=== PATIENT | male | born 1955 | race Caucasian/White ===

== ENCOUNTER 2017-06-05 09:16 | Outpatient (CLI) | payer MEDICARE ==
[~2017-06-05] VITALS: Ht 167.6 cm; Wt 54.0 kg
[2017-06-05] MEDS ORDERED: HYDR-3820 PO (10:01)
[2017-06-05] MEDS ORDERED: SIMV20TA3 PO (10:01)
[2017-06-05] MEDS ORDERED: GABA-488 PO (10:01)
[2017-06-05] MEDS ORDERED: MELO15TA39 PO (10:01)
[2017-06-07] MEDS ORDERED: ACHD5005 PO (11:58)
[2017-06-07] MEDS ORDERED: DOCU-143 PO (11:58)
== END 2017-06-05 10:18 ==
LOC: PREOP 09:16
PROVIDERS: ATTEND Surgery
DX: Z01.818 Encounter for other preprocedural examination (principal); K40.91 Unilateral inguinal hernia, without obstruction or gangrene, recurrent

== ENCOUNTER 2017-06-07 08:50 | Day surgery (SDC) | payer MEDICARE ==
[~2017-06-07] VITALS: Ht 167.6 cm; Wt 54.0 kg
[~2017-06-07 08:50] MED LIST: GABA-488 PO; HYDR-3820 PO; MELO15TA39 PO; SIMV20TA3 PO
--- OUTSIDE RECORDS SUMMARY | 2017-06-07 08:55 | XMS REPORT | Clinical Summary ---
Author Author Admin, THEO Organization 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 HYDROCODONE-ACETAMINOPHEN 04646742335 Active Holland Jimenez MD Active RED YEAST RICE 600 MG CAPS 1 Q HS RED YEAST RICE EXTRACT 56391184313 No Longer Active Holland Jimenez MD Active EQL FISH OIL 1000 MG CAPS QD OMEGA-3 FATTY ACIDS 63198425309 No Longer Active Holland Jimenez MD Active SIMVASTATIN 40 MG TABS 1 tab po qHS SIMVASTATIN 83180222897 No Longer Active Holland Jimenez MD Active TESTOSTERONE CYPIONATE 200 MG/ML OIL 1 x monthly TESTOSTERONE CYPIONATE 73174326861 No Longer Active Holland Jimenez MD Active HYDROCODONE-ACETAMINOPHEN 7.5-500 MG TABS 1 tab po QID HYDROCODONE-ACETAMINOPHEN 33172180127 No Longer Active Holland Jimenez MD Active TAMSULOSIN HCL 0.4 MG CAPS Take one tablet daily TAMSULOSIN HCL 03382139940 No Longer Active Holland Jimenez MD Active MELOXICAM 15 MG TABS 1 PO QD MELOXICAM 40228790108 Active Trang [place] Active MULTIVITAMINS TABS 1 PO QD MULTIPLE VITAMIN 11369071992 Active Trang [place] Active TAMSULOSIN HCL 0.4 MG CAPS Take one tablet daily TAMSULOSIN HCL 0.4 MG CAPS 312672 TAMSULOSIN HCL Inactive HYDROCODONE-ACETAMINOPHEN 7.5-500 MG TABS 1 tab po QID HYDROCODONE-ACETAMINOPHEN 7.5-500 MG TABS HYDROCODONE-ACETAMINOPHEN Inactive TESTOSTERONE CYPIONATE 200 MG/ML OIL 1 x monthly TESTOSTERONE CYPIONATE 200 MG/ML OIL 065712 TESTOSTERONE CYPIONATE Inactive SIMVASTATIN 40 MG TABS 1 tab po qHS SIMVASTATIN 40 MG TABS 847459 SIMVASTATIN Inactive EQL FISH OIL 1000 MG CAPS QD EQL FISH OIL 1000 MG CAPS OMEGA-3 FATTY ACIDS Inactive RED YEAST RICE 600 MG CAPS 1 Q HS RED YEAST RICE 600 MG CAPS 166377 RED YEAST RICE EXTRACT Inactive Advance Directives Directive Description Start Date PERMISSION TO SHARE Vital Signs Date Name Value Unit Range Description blood pressure, diastolic - 8462-4 60 mm[Hg] BP estrella blood pressure, systolic - 8480-6 95 mm[Hg] BP sys pulse rate E&M - 8867-4 70 /min Heart rate temperature E&M 98.6 [degF] Body temperature weight E&M - 3141-9 124 [lb_av] Weight Measured Encounters Code Encounter Date Provider Facility CPT-51126 Level 3 Est. Patient 18:01:45 TALCER Holland Jimenez MD [facility] CPT-54207 Level 3 Est. Patient 15:31:58 TALCER Holland Jimenez MD [facility] CPT-13983 Level 3 Est. Patient 17:39:10 CDT Holland Jimenez MD [facility] Procedures Code Procedure Name Date Entry Date Standard Description CPT-89387 Postop F/U Visit 17:15:05 TALCER CPT-23971 Bladder Scan 15:23:50 TALCER CPT-73422 Postop F/U Visit 15:23:50 TALCER CPT-63513 Bladder Scan 15:31:58 TALCER CPT-08485 Bladder Scan 17:39:10 CDT CPT-71818 Cystoscopy 17:39:10 CDT
--- OUTSIDE RECORDS SUMMARY | 2017-06-07 08:55 | XMS REPORT | Clinical Summary ---
Author Author Admin, THEO Organization [facility] Address Unknown Phone Unavailable Allergies, Adverse Reactions, Alerts Allergy Name Reaction Description Start Date Severity Status Provider No Known Allergies Dottie Martin Conditions or Problems Problem Name Problem Code [...] Generic Name NDC Status Provider Patient Instruction TADALAFIL 20MG RAPID DISSOLVE TABLET 1 daily as needed. TADALAFIL 20MG RAPID DISSOLVE TABLET Active Holland Jimenez MD Active CYCLOBENZAPRINE HCL 10 MG ORAL TABS 1 tab by mouth three times daily CYCLOBENZAPRINE HCL 54908117505 Active Holland Jimenez MD Active HYDROCODONE-ACETAMINOPHEN 10-325 MG ORAL TABS 1 tab by mouth every 6 hours prn. HYDROCODONE-ACETAMINOPHEN 40669085606 Active Holland Jimenez MD Active RED YEAST RICE 600 MG CAPS 1 Q HS RED YEAST RICE EXTRACT 90714058376 No Longer Active Holland Jimenez MD Active EQL FISH OIL 1000 MG CAPS QD OMEGA-3 FATTY ACIDS 68590125162 No Longer Active Holland Jimenez MD Active SIMVASTATIN 40 MG TABS 1 tab po qHS SIMVASTATIN 61080688152 No Longer Active Holland Jimenez MD Active TESTOSTERONE CYPIONATE 200 MG/ML OIL 1 x monthly TESTOSTERONE CYPIONATE 42903637284 No Longer Active Holland Jimenez MD Active HYDROCODONE-ACETAMINOPHEN 7.5-500 MG TABS 1 tab po QID HYDROCODONE-ACETAMINOPHEN 13713562976 No Longer Active Holland Jimenez MD Active TAMSULOSIN HCL 0.4 MG CAPS Take one tablet daily TAMSULOSIN HCL 52457403554 No Longer Active Holland Jimenez MD Active MELOXICAM 15 MG TABS 1 PO QD MELOXICAM 89388193327 Active Trang [place] Active MULTIVITAMINS TABS 1 PO QD MULTIPLE VITAMIN 36225928918 Active Trang [place] Active TAMSULOSIN HCL 0.4 MG CAPS Take one tablet daily TAMSULOSIN HCL 0.4 MG CAPS 930455 TAMSULOSIN HCL Inactive HYDROCODONE-ACETAMINOPHEN 7.5-500 MG TABS 1 tab po QID HYDROCODONE-ACETAMINOPHEN 7.5-500 MG TABS HYDROCODONE-ACETAMINOPHEN Inactive TESTOSTERONE CYPIONATE 200 MG/ML OIL 1 x monthly TESTOSTERONE CYPIONATE 200 MG/ML OIL 122464 TESTOSTERONE CYPIONATE Inactive SIMVASTATIN 40 MG TABS 1 tab po qHS SIMVASTATIN 40 MG TABS 954309 SIMVASTATIN Inactive EQL FISH OIL 1000 MG CAPS QD EQL FISH OIL 1000 MG CAPS OMEGA-3 FATTY ACIDS Inactive RED YEAST RICE 600 MG CAPS 1 Q HS RED YEAST RICE 600 MG CAPS 030178 RED YEAST RICE EXTRACT Inactive Advance Directives Directive Description Start Date PERMISSION TO SHARE Vital Signs Date Name Value Unit Range Description blood pressure, diastolic - 8462-4 70 mm[Hg] BP estrella blood pressure, systolic - 8480-6 120 mm[Hg] BP sys pulse rate E&M - 8867-4 71 /min Heart rate temperature E&M 97.8 [degF] Body temperature weight E&M - 3141-9 117 [lb_av] Weight Measured blood pressure, diastolic - 8462-4 60 mm[Hg] BP estrella blood pressure, systolic - 8480-6 95 mm[Hg] BP sys pulse rate E&M - 8867-4 70 /min Heart rate temperature E&M 98.6 [degF] Body temperature weight E&M - 3141-9 124 [lb_av] Weight Measured Diagnostic Results Date Name Value Unit Range Description Chart Maintenance: Outside labs entered on flowsheet - Chemistry prostate specific antigen 0.8 ng/mL sodium, serum 139 mmol/L potassium, serum 4.2 mmol/L blood glucose 96 mg/dL creatinine, serum 0.7 mg/dL aspartate aminotransferase (SGOT), serum 14 U/L alanine aminotransferase (SGPT), serum 11 U/L alkaline phosphatase, serum 83 U/L Chart Maintenance: Outside labs entered on flowsheet - Hematology leukocyte count, blood 6.80 10*3/mm3 hemoglobin, blood 15.7 g/dL platelet count 227 10*3/mm3 Encounters Code Encounter Date Provider Facility CPT-16991 Level 3 Est. Patient 21:11:41 CDT Holland Jimenez MD [facility] CPT-88621 Level 3 Est. Patient 18:01:45 CULTURE MANAGER Holland Jimenez MD [facility] [place] CPT-15464 Level 3 Est. Patient 15:31:58 CULTURE MANAGER Holland Jimenez MD [facility] CPT-57152 Level 3 Est. Patient 17:39:10 CDT Holland Jimenez MD [facility] Procedures Code Procedure Name Date Entry Date Standard Description CPT-10826 Postop F/U Visit 17:15:05 CULTURE MANAGER CPT-77517 Bladder Scan 15:23:50 CULTURE MANAGER CPT-54344 Postop F/U Visit 15:23:50 CULTURE MANAGER CPT-80260 Bladder Scan 15:31:58 CULTURE MANAGER CPT-47793 Bladder Scan 17:39:10 CDT CPT-43482 Cystoscopy 17:39:10 CDT
--- OUTSIDE RECORDS SUMMARY | 2017-06-07 08:55 | XMS REPORT | Clinical Summary ---
Author Author Admin, THEO Organization [facility] Address Unknown Phone Unavailable Allergies, Adverse Reactions, Alerts Allergy Name Reaction Description Start Date Severity Status Provider No Known Allergies Leanna Torres MA Conditions or Problems Problem Name Problem Code [...] Jimenez MD Elevated prostate specific antigen [PSA] Erectile Dysfunction Active Holland Jimenez MD Psychosexual dysfunction, hypoactive sexual desire disorder Neurofibromatosis 237.70 Active Holland Jimenez MD Neurofibromatosis, unspecified Inguinal hernia, right 550.90 Active Holland Jimenez MD Unilateral or unspecified inguinal hernia, without mention of obstruction or gangrene (not specified as recurrent) Medication List Medication Instructions Start Date Stop Date Generic Name NDC Status Provider Patient Instruction CYCLOBENZAPRINE HCL 10 MG ORAL TABLET 1 tab once daily PRN CYCLOBENZAPRINE HCL 59422219279 Active Holland Jimenez MD Active ADCIRCA 20 MG ORAL TABLET 1 cap by mouth plus 10mg to equal 30mg daily. 08/17 TADALAFIL (PAH) 80531186263 Active Holland Jimenez MD Active TADALAFIL 20MG RAPID DISSOLVE TABLET 1 daily as needed. TADALAFIL 20MG RAPID DISSOLVE TABLET No Longer Active Kae Vaughan Active CYCLOBENZAPRINE HCL 10 MG ORAL TABLET 1 tab by mouth three times daily 05/19 CYCLOBENZAPRINE HCL 73490108299 Active Holland Jimenez MD Active HYDROCODONE-ACETAMINOPHEN 10-325 MG ORAL TABLET 1 tab by mouth every 6 hours prn. HYDROCODONE-ACETAMINOPHEN 85637686616 Active Holland Jimenez MD Active RED YEAST RICE 600 MG ORAL CAPSULE 1 Q HS RED YEAST RICE EXTRACT 91695989533 No Longer Active Holland Jimenez MD Active EQL FISH OIL 1000 MG ORAL CAPSULE QD OMEGA-3 FATTY ACIDS 68622936102 No Longer Active Holland Jimenez MD Active SIMVASTATIN 40 MG ORAL TABLET 1 tab po qHS SIMVASTATIN 61825894518 No Longer Active Holland Jimenez MD Active TESTOSTERONE CYPIONATE 200 MG/ML INTRAMUSCULAR SOLUTION 1 x monthly 05/19 TESTOSTERONE CYPIONATE 81939098355 No Longer Active Holland Jimenez MD Active HYDROCODONE-ACETAMINOPHEN 7.5-500 MG ORAL TABLET 1 tab po QID HYDROCODONE-ACETAMINOPHEN 21322828362 No Longer Active Holland Jimenez MD Active TAMSULOSIN HCL 0.4 MG ORAL CAPSULE Take one tablet daily TAMSULOSIN HCL 79061003455 No Longer Active Holland Jimenez MD Active MELOXICAM 15 MG ORAL TABLET 1 PO QD MELOXICAM 16529568924 Active Trang [place] Active MULTIVITAMINS TABS 1 PO QD MULTIPLE VITAMIN 34553333990 Active Trang [place] Active TAMSULOSIN HCL 0.4 MG ORAL CAPSULE Take one tablet daily TAMSULOSIN HCL 0.4 MG ORAL CAPSULE 473130 TAMSULOSIN HCL Inactive HYDROCODONE-ACETAMINOPHEN 7.5-500 MG ORAL TABLET 1 tab po QID HYDROCODONE-ACETAMINOPHEN 7.5-500 MG ORAL TABLET 274313 HYDROCODONE- ACETAMINOPHEN Inactive TESTOSTERONE CYPIONATE 200 MG/ML INTRAMUSCULAR SOLUTION 1 x monthly 05/19 TESTOSTERONE CYPIONATE 200 MG/ML INTRAMUSCULAR SOLUTION 781694 TESTOSTERONE CYPIONATE Inactive SIMVASTATIN 40 MG ORAL TABLET 1 tab po qHS SIMVASTATIN 40 MG ORAL TABLET 394188 SIMVASTATIN Inactive EQL FISH OIL 1000 MG ORAL CAPSULE QD EQL FISH OIL 1000 MG ORAL CAPSULE OMEGA-3 FATTY ACIDS Inactive RED YEAST RICE 600 MG ORAL CAPSULE 1 Q HS RED YEAST RICE 600 MG ORAL CAPSULE 803495 RED YEAST RICE EXTRACT Inactive Advance Directives Directive Description Start Date PERMISSION TO SHARE Vital Signs Date Name Value Unit Range Description blood pressure, diastolic 61 mm[Hg] BP estrella blood pressure, systolic 90 mm[Hg] BP sys pulse rate E&M 64 /min Heart rate temperature E&M 96.7 [degF] Body temperature weight E&M 118.4 [lb_av] Weight Measured blood pressure, diastolic 72 mm[Hg] BP estrella blood pressure, systolic 113 mm[Hg] BP sys pulse rate E&M 75 /min Heart rate temperature E&M 98.1 [degF] Body temperature weight E&M 115 [lb_av] Weight Measured Encounters Code Encounter Date Provider Facility CPT-74869 Level 3 Est. Patient 14:59:47 CO PILOT Holland Jimenez MD [facility] CPT-70157 Level 3 Est. Patient 17:00:46 CDT Holland Jimenez MD [facility] CPT-62157 Level 3 Est. Patient 21:11:41 CDT Holland Jimenez MD [facility] CPT-94361 Level 3 Est. Patient 18:01:45 CO PILOT Holland Jimenez MD [facility] CPT-70571 Level 3 Est. Patient 15:31:58 CO PILOT Holland Jimenez MD [facility] CPT-22845 Level 3 Est. Patient 17:39:10 CDT Holland Jimenez MD [facility] Procedures Code Procedure Name Date Entry Date Standard Description CPT-83459 Postop F/U Visit 17:15:05 CO PILOT CPT-34056 Bladder Scan 15:23:50 CO PILOT CPT-24009 Postop F/U Visit 15:23:50 CO PILOT CPT-86035 Bladder Scan 15:31:58 CO PILOT CPT-81219 Bladder Scan 17:39:10 CDT CPT-98718 Cystoscopy 17:39:10 CDT
--- OUTSIDE RECORDS SUMMARY | 2017-06-07 08:56 | XMS REPORT ---
Author Author [facility] Medical Staff Organization [facility] Address [address] [place], [place] [address] Phone [phone] Care Team Providers Care Crotch Piece Baster Name Role Phone HAYLEY PROCTOR PP [phone] Summary purpose CCDA Sent to [facility] Chief Complaint and Reason for Visit Admit Diagnosis 1 PAIN IN OR AROUND EYE Problem list No authorized problems tracked for continuity of care are available for this visit. Encounters No authorized problems tracked for encounter diagnoses are available for this visit. Medications No home medications recorded for this patient visit Allergies, adverse reactions, alerts No allergy information is available for this patient. Immunizations No immunizations recorded for this patient visit Relevant diagnostic tests and/or laboratory data No authorized results are available for this patient visit History of procedures Procedure Code Code Type Description Date Performed Performing Physician 99281 CPT-4 SMEAR GRAM STAIN 06-08-2014 HAYLEY LOPEZ 62501 CPT-4 CULTURE OTHR SPECIMN AEROBIC 06-08-2014 HAYLEY LOPEZ Functional status No functional or cognitive status observations are available for this visit. Vital signs No authorized vital signs are available for this visit. Social history No Social History or smoking status observations were recorded for this visit. ( Unknown if ever smoked.) Treatment Plan No treatment plan text is available for this visit. Hospital discharge instructions No discharge instruction text is available for this visit.
--- OUTSIDE RECORDS SUMMARY | 2017-06-07 08:56 | XMS REPORT ---
Author Author [facility] Medical Staff Organization [facility] Address [address] [place], [place] [address] Phone [phone] Care Team Providers Care Casting Inspector Name Role Phone JESSICA ZIEGLERNeva HAYLEY PP [phone] Summary purpose CCDA Sent to [facility] Chief Complaint and Reason for Visit Admit Diagnosis 1 TESTICULAR HYPOFUNC NEC Problem list No authorized problems tracked for continuity of care are available for this visit. Encounters No authorized problems tracked for encounter diagnoses are available for this visit. Medications No home medications recorded for this patient visit Allergies, adverse reactions, alerts No allergy information is available for this patient. Immunizations No immunizations recorded for this patient visit Relevant diagnostic tests and/or laboratory data RESULTS Chemistry Group [id number]:00 Result Normal Range Units PSA Screen 1.6 <=4.0 ng/ml Reference Lab Group [id number]:00 Result Normal Range Units Testosterone Total 947.38 250-1100 ng/dl History of procedures Procedure Code Code Type Description Date Performed Performing Physician 90694 CPT-4 ASSAY OF TOTAL TESTOSTERONE 05-27-2014 HAYLEY LOPEZ G0103 CPT-4 PSA SCREENING 05-27-2014 HAYLEY LOPEZ 13296 CPT-4 ROUTINE VENIPUNCTURE 05-27-2014 HAYLEY LOPEZ Functional status No functional or [...]
--- OUTSIDE RECORDS SUMMARY | 2017-06-07 08:56 | XMS REPORT | Clinical Summary ---
Author Author Admin, THEO Organization [facility] Address Unknown Phone Unavailable Allergies, Adverse Reactions, [...] by mouth three times daily CYCLOBENZAPRINE HCL 95066260053 Active Holland Jimenez MD Active HYDROCODONE-ACETAMINOPHEN 10-325 MG ORAL TABS 1 tab by mouth every 6 hours prn. HYDROCODONE-ACETAMINOPHEN 91842376269 Active Holland Jimenez MD Active RED YEAST RICE 600 MG CAPS 1 Q HS RED YEAST RICE EXTRACT 96898912265 No Longer Active Holland Jimenez MD Active EQL FISH OIL 1000 MG CAPS QD OMEGA-3 FATTY ACIDS 63389949062 No Longer Active Holland Jimenez MD Active SIMVASTATIN 40 MG TABS 1 tab po qHS SIMVASTATIN 12087853242 No Longer Active Holland Jimenez MD Active TESTOSTERONE CYPIONATE 200 MG/ML OIL 1 x monthly TESTOSTERONE CYPIONATE 03755692578 No Longer Active Holland Jimenez MD Active HYDROCODONE-ACETAMINOPHEN 7.5-500 MG TABS 1 tab po QID HYDROCODONE-ACETAMINOPHEN 76291061001 No Longer Active Holland Jimenez MD Active TAMSULOSIN HCL 0.4 MG CAPS Take one tablet daily TAMSULOSIN HCL 83626224014 No Longer Active Holland Jimenez MD Active MELOXICAM 15 MG TABS 1 PO QD MELOXICAM 12871552864 Active Rtang [place] Active MULTIVITAMINS TABS 1 PO QD MULTIPLE VITAMIN 93326213732 Active Trang [place] Active TAMSULOSIN HCL 0.4 MG CAPS Take one tablet daily TAMSULOSIN HCL 0.4 MG CAPS 051177 TAMSULOSIN HCL Inactive HYDROCODONE-ACETAMINOPHEN 7.5-500 MG TABS 1 tab po QID HYDROCODONE-ACETAMINOPHEN 7.5-500 MG TABS HYDROCODONE-ACETAMINOPHEN Inactive TESTOSTERONE CYPIONATE 200 MG/ML OIL 1 x monthly TESTOSTERONE CYPIONATE 200 MG/ML OIL 390141 TESTOSTERONE CYPIONATE Inactive SIMVASTATIN 40 MG TABS 1 tab po qHS SIMVASTATIN 40 MG TABS 188193 SIMVASTATIN Inactive EQL FISH OIL 1000 MG CAPS QD EQL FISH OIL 1000 MG CAPS OMEGA-3 FATTY ACIDS Inactive RED YEAST RICE 600 MG CAPS 1 Q HS RED YEAST RICE 600 MG CAPS 157067 RED YEAST RICE EXTRACT Inactive Advance Directives [...] 10*3/mm3 Encounters Code Encounter Date Provider Facility CPT-31441 Level 3 Est. Patient 18:01:45 WAREHOUSE PACKAGING SUPERVISOR Holland Jimenez MD [facility] CPT-49437 Level 3 Est. Patient 15:31:58 WAREHOUSE PACKAGING SUPERVISOR Holland Jimenez MD [facility] CPT-30746 Level 3 Est. Patient 17:39:10 CDT Holland Jimenez MD [facility] Procedures Code Procedure Name Date Entry Date Standard Description CPT-96312 Postop F/U Visit 17:15:05 WAREHOUSE PACKAGING SUPERVISOR CPT-32007 Bladder Scan 15:23:50 WAREHOUSE PACKAGING SUPERVISOR CPT-28721 Postop F/U Visit 15:23:50 WAREHOUSE PACKAGING SUPERVISOR CPT-28355 Bladder Scan 15:31:58 WAREHOUSE PACKAGING SUPERVISOR CPT-55169 Bladder Scan 17:39:10 CDT CPT-31353 Cystoscopy 17:39:10 CDT
--- OUTSIDE RECORDS SUMMARY | 2017-06-07 08:56 | XMS REPORT ---
Author Author [facility] Medical Staff Organization [facility] Address [address] [place], [place] [address] Phone [phone] Care Team Providers Care Foreign Agent Name Role Phone HAYLEY PROCTOR PP [phone] Summary purpose CCDA Sent to [facility] Chief Complaint and Reason for Visit No authorized Reason for Visit (Admitting Diagnosis) is available for this visit. Problem list No authorized problems tracked for continuity of care are available for this visit. Encounters No authorized problems tracked for encounter diagnoses are available for this visit. Medications No medications recorded for this patient visit Allergies, adverse reactions, alerts No allergy information is available for this patient. Immunizations No immunizations recorded for this patient visit Relevant diagnostic tests and/or laboratory data RESULTS CBC [id number]:00 Result Normal Range Units WBC H 10.52 4.60-10.20 x 103/uL RBC 5.26 4.04-6.13 x 106/uL Hemoglobin 16.0 12.2-18.1 g/dl Hematocrit 49.4 37.7-53.7 % MCV 93.9 80.0-97.0 FL MCH 30.4 27.0-31.2 pg MCHC 32.4 31.8-35.4 g/dl RDW 14.1 11.6-14.8 % Platelets 197 142-424 x 103/uL MPV 11.4 9.4-12.4 FL Manual Diff Not Indicated Neutrophil % 72.5 37-80 % Neutrophils H 7.63 2.0-6.9 x 103/uL Lymphocyte % 15.0 10-50 % Lymphocytes 1.58 0.6-3.4 x 103/uL Monocyte % 9.6 0-12 % Monocytes H 1.01 0.0-1.0 x 103/uL Eosinophil % 2.7 0-7 % Eosinophils 0.28 0-0.7 x 103/uL Basophil % 0.2 0-2 % Basophils 0.02 0.0-0.1 x 103/uL Chemistry Group [id number]:00 Result Normal Range Units Glucose 90 70-99 mg/dl BUN 12 7-26 mg/dl Creatinine 0.8 0.6-1.3 mg/dl Sodium 138 136-145 mmol/L Potassium 4.8 3.5-5.1 mmol/L Chloride 104 98-107 mmol/L CO2 27 22-29 mmol/L BUN/Creatinine Ratio 15 7-25 Ratio Calcium 9.8 8.4-10.2 mg/dl Protein Total 7.6 6.4-8.3 g/dl Albumin 3.9 3.5-5.0 g/dl A/G Ratio L 1.1 1.2-2.2 Ratio AST 13 5-34 U/L ALT 10 0-55 U/L ALP 96 40-150 U/L Bilirubin Total 0.6 0.2-1.2 mg/dl Osmolality 266 261-280 mOsm/kg Globulin H 3.7 2.4-3.5 g/dl Triglycerides 58 0-149 mg/dl Cholesterol H 213 0-199 mg/dl HDL 52 40-60 mg/dl LDL H 149 0-130 mg/dl VLDL 12 0-21 mg/dl TSH 1.23 0.35-4.94 uIU/mL PSA Diagnostic H 4.2 <=4.0 ng/ml Reference Lab Group [id number]:00 Result Normal Range Units Testosterone Total H 1187.67 250-1100 ng/dl History of procedures Procedure Code Code Type Description Date Performed Performing Physician 46370 CPT-4 COMPLETE CBC W/AUTO DIFF WBC 04-21-2015 HAYLEY LOPEZ 16558 CPT-4 COMPREHEN METABOLIC PANEL 04-21-2015 HAYLEY LOPEZ 86012 CPT-4 LIPID PANEL 04-21-2015 HAYLEY LOPEZ 07289 CPT-4 ASSAY THYROID STIM HORMONE 04-21-2015 HAYLEY LOPEZ 60930 CPT-4 ASSAY OF TOTAL TESTOSTERONE 04-21-2015 HAYLEY LOPEZ 62899 CPT-4 ROUTINE VENIPUNCTURE 04-21-2015 HAYLEY LOPEZ G0103 CPT-4 PSA SCREENING 04-21-2015 HAYLEY LOPEZ Functional status No functional or [...]
--- OUTSIDE RECORDS SUMMARY | 2017-06-07 08:56 | XMS REPORT | Clinical Summary ---
Author Author Admin, THEO Organization [facility] Address Unknown Phone Unavailable Allergies, [...] 1 tab once daily PRN CYCLOBENZAPRINE HCL 94766223314 Active Holland Jimenez MD Active ADCIRCA 20 MG ORAL TABLET 1 cap by mouth plus 10mg to equal 30mg daily. 08/17 TADALAFIL (PAH) 73666663890 Active Holland Jimenez MD Active TADALAFIL 20MG RAPID DISSOLVE TABLET 1 daily as needed. TADALAFIL 20MG RAPID DISSOLVE TABLET No Longer Active Kae Vaughan Active CYCLOBENZAPRINE HCL 10 MG ORAL TABLET 1 tab by mouth three times daily 05/19 CYCLOBENZAPRINE HCL 04722471599 Active Holland Jimenez MD Active HYDROCODONE-ACETAMINOPHEN 10-325 MG ORAL TABLET 1 tab by mouth every 6 hours prn. HYDROCODONE-ACETAMINOPHEN 02261337967 Active Holland Jimenez MD Active RED YEAST RICE 600 MG ORAL CAPSULE 1 Q HS RED YEAST RICE EXTRACT 91975855719 No Longer Active Holland Jimenez MD Active EQL FISH OIL 1000 MG ORAL CAPSULE QD OMEGA-3 FATTY ACIDS 78136600252 No Longer Active Holland Jimenez MD Active SIMVASTATIN 40 MG ORAL TABLET 1 tab po qHS SIMVASTATIN 49591244407 No Longer Active Holland Jimenez MD Active TESTOSTERONE CYPIONATE 200 MG/ML INTRAMUSCULAR SOLUTION 1 x monthly 05/19 TESTOSTERONE CYPIONATE 01529675631 No Longer Active Holland Jimenez MD Active HYDROCODONE-ACETAMINOPHEN 7.5-500 MG ORAL TABLET 1 tab po QID HYDROCODONE-ACETAMINOPHEN 67601311498 No Longer Active Holland Jimenez MD Active TAMSULOSIN HCL 0.4 MG ORAL CAPSULE Take one tablet daily TAMSULOSIN HCL 92667004574 No Longer Active Holland Jimenez MD Active MELOXICAM 15 MG ORAL TABLET 1 PO QD MELOXICAM 71765599783 Active Trang [place] Active MULTIVITAMINS TABS 1 PO QD MULTIPLE VITAMIN 11885898144 Active Trang [place] Active TAMSULOSIN HCL 0.4 MG ORAL CAPSULE Take one tablet daily TAMSULOSIN HCL 0.4 MG ORAL CAPSULE 637817 TAMSULOSIN HCL Inactive HYDROCODONE-ACETAMINOPHEN 7.5-500 MG ORAL TABLET 1 tab po QID HYDROCODONE-ACETAMINOPHEN 7.5-500 MG ORAL TABLET 695181 HYDROCODONE- ACETAMINOPHEN Inactive TESTOSTERONE CYPIONATE 200 MG/ML INTRAMUSCULAR SOLUTION 1 x monthly 05/19 TESTOSTERONE CYPIONATE 200 MG/ML INTRAMUSCULAR SOLUTION 685942 TESTOSTERONE CYPIONATE Inactive SIMVASTATIN 40 MG ORAL TABLET 1 tab po qHS SIMVASTATIN 40 MG ORAL TABLET 101858 SIMVASTATIN Inactive EQL FISH OIL 1000 MG ORAL CAPSULE QD EQL FISH OIL 1000 MG ORAL CAPSULE OMEGA-3 FATTY ACIDS Inactive RED YEAST RICE 600 MG ORAL CAPSULE 1 Q HS RED YEAST RICE 600 MG ORAL CAPSULE 347609 RED YEAST RICE EXTRACT Inactive Advance Directives [...] Measured Encounters Code Encounter Date Provider Facility CPT-37011 Level 3 Est. Patient 14:59:47 CUPOLA MELTING SUPERVISOR Holland Jimenez MD [facility] CPT-13022 Level 3 Est. Patient 17:00:46 CDT Holland Jimenez MD [facility] CPT-10973 Level 3 Est. Patient 21:11:41 CDT Holland Jimenez MD [facility] CPT-19948 Level 3 Est. Patient 18:01:45 CUPOLA MELTING SUPERVISOR Holland Jimenez MD [facility] CPT-16928 Level 3 Est. Patient 15:31:58 CUPOLA MELTING SUPERVISOR Holland Jimenez MD [facility] CPT-27551 Level 3 Est. Patient 17:39:10 CDT Holland Jimenez MD [facility] Procedures Code Procedure Name Date Entry Date Standard Description CPT-01674 Postop F/U Visit 17:15:05 CUPOLA MELTING SUPERVISOR CPT-24563 Bladder Scan 15:23:50 CUPOLA MELTING SUPERVISOR CPT-24941 Postop F/U Visit 15:23:50 CUPOLA MELTING SUPERVISOR CPT-41256 Bladder Scan 15:31:58 CUPOLA MELTING SUPERVISOR CPT-79142 Bladder Scan 17:39:10 CDT CPT-46276 Cystoscopy 17:39:10 CDT
--- OUTSIDE RECORDS SUMMARY | 2017-06-07 08:56 | XMS REPORT ---
Author Author [facility] Medical Staff Organization [facility] Address [address] [place], [place] [address] Phone [phone] Care Team Providers Care Power Equipment Technology Instructor Name Role Phone HAYLEY PROCTOR PP [phone] Summary purpose CCDA Sent to [facility] Chief Complaint and Reason for Visit [...] Code Type Description Date Performed Performing Physician 68832 CPT-4 ELECTROCARDIOGRAM REPORT 12-14-2016 JUAN NEGRON Functional status No functional or cognitive status [...]
--- OUTSIDE RECORDS SUMMARY | 2017-06-07 08:56 | XMS REPORT ---
Author Author [facility] Medical Staff Organization [facility] Address [address] [place], [place] [address] Phone [phone] Care Team Providers Care Pure Pak Machine Operator Name Role Phone HAYLEY PROCTOR PP [phone] Summary purpose CCDA Sent to [facility] Chief Complaint and Reason for Visit [...] Code Type Description Date Performed Performing Physician 12006 CPT-4 ROUTINE VENIPUNCTURE 11-24-2016 HAYLEY LOPEZ 99532 CPT-4 COMPLETE CBC W/AUTO DIFF WBC 11-24-2016 HAYLEY LOPEZ Functional status No functional or [...]
--- OUTSIDE RECORDS SUMMARY | 2017-06-07 08:56 | XMS REPORT ---
Author Author [facility] Medical Staff Organization [facility] Address [address] [place], [place] [address] Phone [phone] Care Team Providers Care Cable Braider Name Role Phone JESSICA ANDREA HAYLEY PP [phone] Summary purpose CCDA Sent to [facility] Chief Complaint and Reason for Visit Admit Diagnosis 1 BENIGH PROSTATIC HYPERTROPHY Problem list No authorized problems tracked for [...] Code Type Description Date Performed Performing Physician 52938 CPT-4 COMPREHEN METABOLIC PANEL 10-24-2016 HAYLEY LOPEZ 09540 CPT-4 ASSAY THYROID STIM HORMONE 10-24-2016 HAYLEY LOPEZ 02490 CPT-4 ASSAY OF TOTAL TESTOSTERONE 10-24-2016 HAYLEY LOPEZ 24977 CPT-4 ASSAY OF PSA, TOTAL 10-24-2016 HAYLEY LOPEZ 02684 CPT-4 ROUTINE VENIPUNCTURE 10-24-2016 HAYLEY LOPEZ 35713 CPT-4 COMPLETE CBC W/AUTO DIFF WBC 10-24-2016 HAYLEY LOPEZ Functional status No functional or [...]
--- OUTSIDE RECORDS SUMMARY | 2017-06-07 08:56 | XMS REPORT | Clinical Summary ---
Author Author Admin, THEO Organization [facility] Address Unknown Phone Unavailable Allergies, Adverse [...] 1 tab once daily PRN CYCLOBENZAPRINE HCL 12658859863 Active Holland Jimenez MD Active ADCIRCA 20 MG ORAL TABLET 1 cap by mouth plus 10mg to equal 30mg daily. 08/17 TADALAFIL (PAH) 38348019209 Active Holland Jimenez MD Active TADALAFIL 20MG RAPID DISSOLVE TABLET 1 daily as needed. TADALAFIL 20MG RAPID DISSOLVE TABLET No Longer Active Kae Vaughan Active CYCLOBENZAPRINE HCL 10 MG ORAL TABLET 1 tab by mouth three times daily 05/19 CYCLOBENZAPRINE HCL 02809893447 Active Holland Jimenez MD Active HYDROCODONE-ACETAMINOPHEN 10-325 MG ORAL TABLET 1 tab by mouth every 6 hours prn. HYDROCODONE-ACETAMINOPHEN 29301538579 Active Holland Jimenez MD Active RED YEAST RICE 600 MG ORAL CAPSULE 1 Q HS RED YEAST RICE EXTRACT 69188408867 No Longer Active Holland Jimenez MD Active EQL FISH OIL 1000 MG ORAL CAPSULE QD OMEGA-3 FATTY ACIDS 79164117192 No Longer Active Holland Jimenez MD Active SIMVASTATIN 40 MG ORAL TABLET 1 tab po qHS SIMVASTATIN 73746306302 No Longer Active Holland Jimenez MD Active TESTOSTERONE CYPIONATE 200 MG/ML INTRAMUSCULAR SOLUTION 1 x monthly 05/19 TESTOSTERONE CYPIONATE 89149503490 No Longer Active Holland Jimenez MD Active HYDROCODONE-ACETAMINOPHEN 7.5-500 MG ORAL TABLET 1 tab po QID HYDROCODONE-ACETAMINOPHEN 12708287511 No Longer Active Holland Jimenez MD Active TAMSULOSIN HCL 0.4 MG ORAL CAPSULE Take one tablet daily TAMSULOSIN HCL 42408221036 No Longer Active Holland Jimenez MD Active MELOXICAM 15 MG ORAL TABLET 1 PO QD MELOXICAM 06597040105 Active Trang [place] Active MULTIVITAMINS TABS 1 PO QD MULTIPLE VITAMIN 33466507477 Active Trang [place] Active TAMSULOSIN HCL 0.4 MG ORAL CAPSULE Take one tablet daily TAMSULOSIN HCL 0.4 MG ORAL CAPSULE 056657 TAMSULOSIN HCL Inactive HYDROCODONE-ACETAMINOPHEN 7.5-500 MG ORAL TABLET 1 tab po QID HYDROCODONE-ACETAMINOPHEN 7.5-500 MG ORAL TABLET 304042 HYDROCODONE- ACETAMINOPHEN Inactive TESTOSTERONE CYPIONATE 200 MG/ML INTRAMUSCULAR SOLUTION 1 x monthly 05/19 TESTOSTERONE CYPIONATE 200 MG/ML INTRAMUSCULAR SOLUTION 465285 TESTOSTERONE CYPIONATE Inactive SIMVASTATIN 40 MG ORAL TABLET 1 tab po qHS SIMVASTATIN 40 MG ORAL TABLET 546517 SIMVASTATIN Inactive EQL FISH OIL 1000 MG ORAL CAPSULE QD EQL FISH OIL 1000 MG ORAL CAPSULE OMEGA-3 FATTY ACIDS Inactive RED YEAST RICE 600 MG ORAL CAPSULE 1 Q HS RED YEAST RICE 600 MG ORAL CAPSULE 045040 RED YEAST RICE EXTRACT Inactive Advance Directives [...] Measured Encounters Code Encounter Date Provider Facility CPT-72081 Level 3 Est. Patient 14:59:47 TERRAZZO MECHANIC HELPER Holland Jimenez MD [facility] CPT-86305 Level 3 Est. Patient 17:00:46 CDT Holland Jimenez MD [facility] CPT-27713 Level 3 Est. Patient 21:11:41 CDT Holland Jimenez MD [facility] CPT-28043 Level 3 Est. Patient 18:01:45 TERRAZZO MECHANIC HELPER Holland Jimenez MD [facility] CPT-04470 Level 3 Est. Patient 15:31:58 TERRAZZO MECHANIC HELPER Holland Jimenez MD [facility] CPT-26731 Level 3 Est. Patient 17:39:10 CDT Holland Jimenez MD [facility] Procedures Code Procedure Name Date Entry Date Standard Description CPT-86760 Postop F/U Visit 17:15:05 TERRAZZO MECHANIC HELPER CPT-10245 Bladder Scan 15:23:50 TERRAZZO MECHANIC HELPER CPT-90840 Postop F/U Visit 15:23:50 TERRAZZO MECHANIC HELPER CPT-22508 Bladder Scan 15:31:58 TERRAZZO MECHANIC HELPER CPT-79349 Bladder Scan 17:39:10 CDT CPT-71755 Cystoscopy 17:39:10 CDT
--- OUTSIDE RECORDS SUMMARY | 2017-06-07 08:57 | XMS REPORT ---
Author Author [facility] Medical Staff Organization [facility] Address [address] [address] [place], [place] [address] Phone [phone] Care Team Providers Care Email Marketer Name Role Phone HAYLEY PROCTOR PP [phone] Summary purpose CCDA Sent to [facility] [...] Code Type Description Date Performed Performing Physician 36967 CPT-4 ELECTROCARDIOGRAM, TRACING 12-14-2016 SYDNIE KELSEY Functional status No functional or cognitive status [...]
--- OUTSIDE RECORDS SUMMARY | 2017-06-07 08:57 | XMS REPORT | Clinical Summary ---
Author Author Admin, THEO Organization [facility] Address Unknown Phone Unavailable Allergies, Adverse [...] MD Psychosexual dysfunction, hypoactive sexual desire disorder Medication List Medication Instructions Start Date Stop Date Generic Name NDC Status Provider Patient Instruction ADCIRCA 20 MG ORAL TABS 1 cap by mouth plus 10mg to equal 30mg daily. TADALAFIL (PAH) 70969169336 Active Holland Jimenez MD Active TADALAFIL 20MG RAPID DISSOLVE TABLET 1 daily as needed. TADALAFIL 20MG RAPID DISSOLVE TABLET No Longer Active Kae Vaughan Active CYCLOBENZAPRINE HCL 10 MG ORAL TABS 1 tab by mouth three times daily CYCLOBENZAPRINE HCL 41879128554 Active Holland Jimenez MD Active HYDROCODONE-ACETAMINOPHEN 10-325 MG ORAL TABS 1 tab by mouth every 6 hours prn. HYDROCODONE-ACETAMINOPHEN 91335380780 Active Holland Jimenez MD Active RED YEAST RICE 600 MG CAPS 1 Q HS RED YEAST RICE EXTRACT 83150657605 No Longer Active Holland Jimenez MD Active EQL FISH OIL 1000 MG CAPS QD OMEGA-3 FATTY ACIDS 10402415742 No Longer Active Holland Jimenez MD Active SIMVASTATIN 40 MG TABS 1 tab po qHS SIMVASTATIN 03847528390 No Longer Active Holland Jimenez MD Active TESTOSTERONE CYPIONATE 200 MG/ML OIL 1 x monthly TESTOSTERONE CYPIONATE 33105018938 No Longer Active Holland Jimenez MD Active HYDROCODONE-ACETAMINOPHEN 7.5-500 MG TABS 1 tab po QID HYDROCODONE-ACETAMINOPHEN 71286584924 No Longer Active Holland Jimenez MD Active TAMSULOSIN HCL 0.4 MG CAPS Take one tablet daily TAMSULOSIN HCL 59741574009 No Longer Active Holland Jimenez MD Active MELOXICAM 15 MG TABS 1 PO QD MELOXICAM 48153150866 Active Trang [place] Active MULTIVITAMINS TABS 1 PO QD MULTIPLE VITAMIN 32326389095 Active Trang [place] Active TAMSULOSIN HCL 0.4 MG CAPS Take one tablet daily TAMSULOSIN HCL 0.4 MG CAPS 917844 TAMSULOSIN HCL Inactive HYDROCODONE-ACETAMINOPHEN 7.5-500 MG TABS 1 tab po QID HYDROCODONE-ACETAMINOPHEN 7.5-500 MG TABS 320832 HYDROCODONE-ACETAMINOPHEN Inactive TESTOSTERONE CYPIONATE 200 MG/ML OIL 1 x monthly TESTOSTERONE CYPIONATE 200 MG/ML OIL 091692 TESTOSTERONE CYPIONATE Inactive SIMVASTATIN 40 MG TABS 1 tab po qHS SIMVASTATIN 40 MG TABS 012181 SIMVASTATIN Inactive EQL FISH OIL 1000 MG CAPS QD EQL FISH OIL 1000 MG CAPS OMEGA-3 FATTY ACIDS Inactive RED YEAST RICE 600 MG CAPS 1 Q HS RED YEAST RICE 600 MG CAPS 392235 RED YEAST RICE EXTRACT Inactive Advance Directives Directive Description Start Date PERMISSION TO SHARE Vital Signs Date Name Value Unit Range Description blood pressure, diastolic 72 mm[Hg] BP estrella blood pressure, systolic 113 mm[Hg] BP sys pulse rate E&M 75 /min Heart rate temperature E&M 98.1 [degF] Body temperature weight E&M 115 [lb_av] Weight Measured Encounters Code Encounter Date Provider Facility CPT-33162 Level 3 Est. Patient 17:00:46 CDT Holland Jimenez MD [facility] CPT-44362 Level 3 Est. Patient 21:11:41 CDT Holland Jimenez MD [facility] CPT-05465 Level 3 Est. Patient 18:01:45 COMPLAINT COORDINATOR Holland Jimenez MD [facility] CPT-13425 Level 3 Est. Patient 15:31:58 COMPLAINT COORDINATOR Holland Jimenez MD [facility] CPT-23649 Level 3 Est. Patient 17:39:10 CDT Holland Jimenez MD [facility] Procedures Code Procedure Name Date Entry Date Standard Description CPT-57166 Postop F/U Visit 17:15:05 COMPLAINT COORDINATOR CPT-04234 Bladder Scan 15:23:50 COMPLAINT COORDINATOR CPT-25719 Postop F/U Visit 15:23:50 COMPLAINT COORDINATOR CPT-73435 Bladder Scan 15:31:58 COMPLAINT COORDINATOR CPT-13164 Bladder Scan 17:39:10 CDT CPT-25172 Cystoscopy 17:39:10 CDT
--- OUTSIDE RECORDS SUMMARY | 2017-06-07 08:57 | XMS REPORT ---
Author Author [facility] Medical Staff Organization [facility] Address [address] [place], [place] [address] Phone [phone] Care Team Providers Care Director Speech Language Name Role Phone JESSICA MENDEZ HAYLEY PP [phone] Summary purpose CCDA Sent to [facility] Chief Complaint and Reason for Visit No [...] Code Type Description Date Performed Performing Physician 77213 CPT-4 ROUTINE VENIPUNCTURE 03-28-2016 HAYLEY LOPEZ 92390 CPT-4 COMPLETE CBC W/AUTO DIFF WBC 03-28-2016 HAYLEY LOPEZ 50210 CPT-4 COMPREHEN METABOLIC PANEL 03-28-2016 HAYLEY LOPEZ 13988 CPT-4 LIPID PANEL 03-28-2016 HAYLEY LOPEZ 10180 CPT-4 ASSAY OF PSA, TOTAL 03-28-2016 HAYLEY LOPEZ Functional status No functional or [...]
--- OUTSIDE RECORDS SUMMARY | 2017-06-07 08:57 | XMS REPORT ---
Author Author [facility] Medical Staff Organization [facility] Address [address] [place], [place] [address] Phone [phone] Care Team Providers Care Insurance Broker Name Role Phone HAYLEY PROCTOR PP [phone] Summary purpose CCDA Sent to [facility] Chief Complaint and Reason for Visit [...] diagnostic tests and/or laboratory data RESULTS CBC 06-28-066236:50:00 Result Normal Range Units WBC 6.80 4.60-10.20 x 103/uL RBC 5.11 4.04-6.13 x 106/uL Hemoglobin 15.7 12.2-18.1 g/dl Hematocrit 48.5 37.7-53.7 % MCV 94.9 80.0-97.0 FL MCH 30.7 27.0-31.2 pg MCHC 32.4 31.8-35.4 g/dl RDW 14.0 11.6-14.8 % Platelets 227 142-424 x 103/uL SLIDE REVIEWD NO PLATLET CLUMPING SEEN MPV 10.8 9.4-12.4 FL Neutrophil % 65.7 37-80 % Neutrophils 4.47 2.0-6.9 x 103/uL Lymphocyte % 21.2 10-50 % Lymphocytes 1.44 0.6-3.4 x 103/uL Monocyte % 10.9 0-12 % Monocytes 0.74 0.0-1.0 x 103/uL Eosinophil % 1.9 0-7 % Eosinophils 0.13 0-0.7 x 103/uL Basophil % 0.3 0-2 % Basophils 0.02 0.0-0.1 x 103/uL Chemistry Group [id number]:50:00 Result Normal Range Units Glucose 96 70-99 mg/dl BUN 13 7-26 mg/dl Creatinine 0.7 0.6-1.3 mg/dl Sodium 139 136-145 mmol/L Potassium 4.2 3.5-5.1 mmol/L Chloride 105 98-107 mmol/L CO2 27 22-29 mmol/L BUN/Creatinine Ratio 19 7-25 Ratio Calcium 9.2 8.4-10.2 mg/dl Protein Total 7.2 6.4-8.3 g/dl Albumin 3.8 3.5-5.0 g/dl A/G Ratio L 1.1 1.2-2.2 Ratio AST 14 5-34 U/L ALT 11 0-55 U/L ALP 83 40-150 U/L Bilirubin Total 0.4 0.2-1.2 mg/dl Osmolality 269 261-280 mOsm/kg Globulin 3.4 2.4-3.5 g/dl Triglycerides 37 0-149 mg/dl Cholesterol 153 0-199 mg/dl HDL 48 40-60 mg/dl LDL 98 0-130 mg/dl VLDL 7 0-21 mg/dl PSA Screen 0.8 <=4.0 ng/ml History of procedures Procedure Code Code Type Description Date Performed Performing Physician 62766 CPT-4 COMPLETE CBC W/AUTO DIFF WBC 07-26-2015 HAYLEY LOPEZ 96790 CPT-4 COMPREHEN METABOLIC PANEL 07-26-2015 HAYLEY LOPEZ 78012 CPT-4 LIPID PANEL 07-26-2015 HAYLEY LOPEZ G0103 CPT-4 PSA SCREENING 07-26-2015 HAYLEY LOPEZ 93000 CPT-4 ROUTINE VENIPUNCTURE 07-26-2015 HAYLEY LOPEZ Functional status No functional or [...]
--- OUTSIDE RECORDS SUMMARY | 2017-06-07 08:57 | XMS REPORT ---
Author Author [facility] Medical Staff Organization [facility] Address [address] [place], [place] [address] Phone [phone] Care Team Providers Care Chemical Plant Manager Name Role Phone HAYLEY PROCTOR PP [phone] Summary purpose CCDA Sent to [facility] Chief Complaint and Reason for Visit Admit Diagnosis 1 PALPITATIONS Problem list No authorized problems tracked for [...] Code Type Description Date Performed Performing Physician 94674 CPT-4 TTE W/DOPPLER, COMPLETE 08-29-2016 HAYLEY LOPEZ Functional status No functional or [...]
--- OUTSIDE RECORDS SUMMARY | 2017-06-07 08:57 | XMS REPORT | Clinical Summary ---
[...] 10mg to equal 30mg daily. TADALAFIL (PAH) 99363371556 Active Holland Jimenez MD Active TADALAFIL 20MG RAPID DISSOLVE TABLET 1 daily as needed. TADALAFIL 20MG RAPID DISSOLVE TABLET No Longer Active Kae Vaughan Active CYCLOBENZAPRINE HCL 10 MG ORAL TABS 1 tab by mouth three times daily CYCLOBENZAPRINE HCL 72040224970 Active Holland Jimenez MD Active HYDROCODONE-ACETAMINOPHEN 10-325 MG ORAL TABS 1 tab by mouth every 6 hours prn. HYDROCODONE-ACETAMINOPHEN 07599150077 Active Holland Jimenez MD Active RED YEAST RICE 600 MG CAPS 1 Q HS RED YEAST RICE EXTRACT 47416232066 No Longer Active Holland Jimenez MD Active EQL FISH OIL 1000 MG CAPS QD OMEGA-3 FATTY ACIDS 32625670413 No Longer Active Holland Jimenez MD Active SIMVASTATIN 40 MG TABS 1 tab po qHS SIMVASTATIN 90000411152 No Longer Active Holland Jimenez MD Active TESTOSTERONE CYPIONATE 200 MG/ML OIL 1 x monthly TESTOSTERONE CYPIONATE 68910956866 No Longer Active Holland Jimenez MD Active HYDROCODONE-ACETAMINOPHEN 7.5-500 MG TABS 1 tab po QID HYDROCODONE-ACETAMINOPHEN 60186203929 No Longer Active Holland Jimenez MD Active TAMSULOSIN HCL 0.4 MG CAPS Take one tablet daily TAMSULOSIN HCL 29186647788 No Longer Active Holland Jimenez MD Active MELOXICAM 15 MG TABS 1 PO QD MELOXICAM 59107175871 Active Trang [place] Active MULTIVITAMINS TABS 1 PO QD MULTIPLE VITAMIN 79450290248 Active Trang [place] Active TAMSULOSIN HCL 0.4 MG CAPS Take one tablet daily TAMSULOSIN HCL 0.4 MG CAPS 242700 TAMSULOSIN HCL Inactive HYDROCODONE-ACETAMINOPHEN 7.5-500 MG TABS 1 tab po QID HYDROCODONE-ACETAMINOPHEN 7.5-500 MG TABS 960661 HYDROCODONE-ACETAMINOPHEN Inactive TESTOSTERONE CYPIONATE 200 MG/ML OIL 1 x monthly TESTOSTERONE CYPIONATE 200 MG/ML OIL 032011 TESTOSTERONE CYPIONATE Inactive SIMVASTATIN 40 MG TABS 1 tab po qHS SIMVASTATIN 40 MG TABS 806747 SIMVASTATIN Inactive EQL FISH OIL 1000 MG CAPS QD EQL FISH OIL 1000 MG CAPS OMEGA-3 FATTY ACIDS Inactive RED YEAST RICE 600 MG CAPS 1 Q HS RED YEAST RICE 600 MG CAPS 902491 RED YEAST RICE EXTRACT Inactive Advance Directives Directive Description Start Date PERMISSION TO SHARE Vital Signs Date Name Value Unit Range Description blood pressure, diastolic 72 mm[Hg] BP estrella blood pressure, systolic 113 mm[Hg] BP sys pulse rate E&M 75 /min Heart rate temperature E&M 98.1 [degF] Body temperature weight E&M 115 [lb_av] Weight Measured Encounters Code Encounter Date Provider Facility CPT-09543 Level 3 Est. Patient 17:00:46 CDT Holland Jimenez MD [facility] CPT-46438 Level 3 Est. Patient 21:11:41 CDT Holland Jimenez MD [facility] CPT-21670 Level 3 Est. Patient 18:01:45 TEAROOM HOST Holland Jimenez MD [facility] CPT-77340 Level 3 Est. Patient 15:31:58 TEAROOM HOST Holland Jimenez MD [facility] CPT-67981 Level 3 Est. Patient 17:39:10 CDT Holland Jimenez MD [facility] Procedures Code Procedure Name Date Entry Date Standard Description CPT-53900 Postop F/U Visit 17:15:05 TEAROOM HOST CPT-39911 Bladder Scan 15:23:50 TEAROOM HOST CPT-19893 Postop F/U Visit 15:23:50 TEAROOM HOST CPT-94813 Bladder Scan 15:31:58 TEAROOM HOST CPT-81175 Bladder Scan 17:39:10 CDT CPT-39663 Cystoscopy 17:39:10 CDT
--- OUTSIDE RECORDS SUMMARY | 2017-06-07 08:57 | XMS REPORT | Clinical Summary ---
Author Author Admin, THEO Organization [facility] Address Unknown Phone Unavailable Allergies, Adverse [...] 10mg to equal 30mg daily. TADALAFIL (PAH) 37592209786 Active Holland Jimenez MD Active TADALAFIL 20MG RAPID DISSOLVE TABLET 1 daily as needed. TADALAFIL 20MG RAPID DISSOLVE TABLET No Longer Active Kae Vaughan Active CYCLOBENZAPRINE HCL 10 MG ORAL TABS 1 tab by mouth three times daily CYCLOBENZAPRINE HCL 34445288930 Active Holland Jimenez MD Active HYDROCODONE-ACETAMINOPHEN 10-325 MG ORAL TABS 1 tab by mouth every 6 hours prn. HYDROCODONE-ACETAMINOPHEN 27397528816 Active Holland Jimenez MD Active RED YEAST RICE 600 MG CAPS 1 Q HS RED YEAST RICE EXTRACT 30479099742 No Longer Active Holland Jimenez MD Active EQL FISH OIL 1000 MG CAPS QD OMEGA-3 FATTY ACIDS 64744809994 No Longer Active Holland Jimenez MD Active SIMVASTATIN 40 MG TABS 1 tab po qHS SIMVASTATIN 82677553788 No Longer Active Holland Jimenez MD Active TESTOSTERONE CYPIONATE 200 MG/ML OIL 1 x monthly TESTOSTERONE CYPIONATE 70025790124 No Longer Active Holland Jimenez MD Active HYDROCODONE-ACETAMINOPHEN 7.5-500 MG TABS 1 tab po QID HYDROCODONE-ACETAMINOPHEN 32086644634 No Longer Active Holland Jimenez MD Active TAMSULOSIN HCL 0.4 MG CAPS Take one tablet daily TAMSULOSIN HCL 54272769567 No Longer Active Holland Jimenez MD Active MELOXICAM 15 MG TABS 1 PO QD MELOXICAM 63339469562 Active [facility] [place] Active MULTIVITAMINS TABS 1 PO QD MULTIPLE VITAMIN 81528055058 Active [facility] [place] Active TAMSULOSIN HCL 0.4 MG CAPS Take one tablet daily TAMSULOSIN HCL 0.4 MG CAPS 184580 TAMSULOSIN HCL Inactive HYDROCODONE-ACETAMINOPHEN 7.5-500 MG TABS 1 tab po QID HYDROCODONE-ACETAMINOPHEN 7.5-500 MG TABS 714955 HYDROCODONE-ACETAMINOPHEN Inactive TESTOSTERONE CYPIONATE 200 MG/ML OIL 1 x monthly TESTOSTERONE CYPIONATE 200 MG/ML OIL 263957 TESTOSTERONE CYPIONATE Inactive SIMVASTATIN 40 MG TABS 1 tab po qHS SIMVASTATIN 40 MG TABS 084132 SIMVASTATIN Inactive EQL FISH OIL 1000 MG CAPS QD EQL FISH OIL 1000 MG CAPS OMEGA-3 FATTY ACIDS Inactive RED YEAST RICE 600 MG CAPS 1 Q HS RED YEAST RICE 600 MG CAPS 093243 RED YEAST RICE EXTRACT Inactive Advance Directives Directive Description Start Date PERMISSION TO [facility]ARE Vital Signs Date Name Value Unit Range Description blood pressure, diastolic 72 mm[Hg] BP estrella blood pressure, systolic 113 mm[Hg] BP sys pulse rate E&M 75 /min Heart rate temperature E&M 98.1 [degF] Body temperature weight E&M 115 [lb_av] Weight Measured Encounters Code Encounter Date Provider Facility CPT-62590 Level 3 Est. Patient 17:00:46 CDT Holland Jimenez MD [facility] CPT-91543 Level 3 Est. Patient 21:11:41 CDT Holland Jimenez MD [facility] CPT-80199 Level 3 Est. Patient 18:01:45 DYE COL[employer]IST FORMULATOR Holland Jimenez MD [facility] [place] CPT-78446 Level 3 Est. Patient 15:31:58 DYE COLORIST FORMULATOR Holland Jimenez MD [facility] [place] CPT-55150 Level 3 Est. Patient 17:39:10 CDT Holland Jimenez MD [facility] Procedures Code Procedure Name Date Entry Date Standard Description CPT-85617 Postop F/U Visit 17:15:05 DYE COL[employer]IST FORMULATOR CPT-61937 Bladder Scan 15:23:50 DYE COLORIST FORMULATOR CPT-21074 Postop F/U Visit 15:23:50 DYE COLORIST FORMULATOR CPT-30415 Bladder Scan 15:31:58 DYE COLORIST FORMULATOR CPT-89346 Bladder Scan 17:39:10 CDT CPT-29406 Cystoscopy 17:39:10 CDT
--- OUTSIDE RECORDS SUMMARY | 2017-06-07 08:58 | XMS REPORT ---
Author Author [facility] Medical Staff Organization [facility] Address [address] [place], [place] [id number] Phone [phone] Care Team Providers Care Door To Door Salesperson Name Role Phone HAYLEY PROCTOR PP [phone] Summary purpose CCDA Sent to [facility] Chief Complaint and Reason for Visit Admit [...] diagnostic tests and/or laboratory data RESULTS CBC [id number]:00 Result Normal Range Units WBC 6.98 4.60-10.20 x 103/uL RBC 5.39 4.04-6.13 x 106/uL Hemoglobin 16.4 12.2-18.1 g/dl Hematocrit 49.9 37.7-53.7 % MCV 92.6 80.0-97.0 FL MCH 30.4 27.0-31.2 pg MCHC 32.9 31.8-35.4 g/dl RDW 13.6 11.6-14.8 % Platelets 180 142-424 x 103/uL MPV 11.7 9.4-12.4 FL Manual Diff Not Indicated Neutrophil % 66.9 37-80 % Neutrophils 4.67 2.0-6.9 x 103/uL Lymphocyte % 17.5 10-50 % Lymphocytes 1.22 0.6-3.4 x 103/uL Monocyte % 10.2 0-12 % Monocytes 0.71 0.0-1.0 x 103/uL Eosinophil % 5.3 0-7 % Eosinophils 0.37 0-0.7 x 103/uL Basophil % 0.1 0-2 % Basophils 0.01 0.0-0.1 x 103/uL Chemistry Group [id number]:00 Result Normal Range Units Glucose 110 65-110 mg/dl BUN 16 7-21 mg/dl Creatinine 0.7 0.7-1.5 mg/dl Sodium 142 137-145 mmol/L Potassium 4.0 3.6-5.0 mmol/L Chloride 104 98-107 mmol/L CO2 28 22-30 mmol/L BUN/Creatinine Ratio 21.5 7-25 Ratio Calcium 9.4 8.4-10.2 mg/dl Protein Total 7.5 6.3-8.2 g/dl Albumin 4.2 3.5-5.0 g/dl A/G Ratio 1.3 1.2-2.2 Ratio AST 17 15-46 U/L ALT 28 7-56 U/L ALP 88 38-126 U/L Bilirubin Total 0.5 0.2-1.3 mg/dl Osmolality 277 261-280 mOsm/kg Globulin 3.3 2.4-3.5 g/dL PSA Screen 0.8 <=4.0 ng/ml Reference Lab Group [id number] Result Normal Range Units Testosterone Total 751.53 250-1100 ng/dl History of procedures Procedure Code Code Type Description Date Performed Performing Physician 52194 CPT-4 COMPLETE CBC W/AUTO DIFF WBC 09-22-2014 HAYLEY LOPEZ 76511 CPT-4 COMPREHEN METABOLIC PANEL 09-22-2014 HAYLEY LOPEZ 90109 CPT-4 ASSAY OF TOTAL TESTOSTERONE 09-22-2014 HAYLEY LOPEZ G0103 CPT-4 PSA SCREENING 09-22-2014 HAYLEY LOPEZ 25615 CPT-4 ROUTINE VENIPUNCTURE 09-22-2014 HAYLEY LOPEZ Functional status No functional or [...]
--- OUTSIDE RECORDS SUMMARY | 2017-06-07 08:58 | XMS REPORT | Continuity of Care Document ---
Author Author [facility] Address Unknown Phone Unavailable Allergies There is no data. Medications There is no data. 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 08/23/2011 MADL ARN, NINOSKA L D V70.5 HEALTH EXAM-GROUP SURVEY 08/23/2011 MADL ARN, NINOSKA L D V76.44 SCREEN MAL NEOP PROSTATE 10/19/2011 MADL ARN, NINOSKA L D 272.4 HYPERLIPIDEMIA NEC/NOS 10/19/2011 MADL ARN, NINOSKA L D 719.41 JOINT PAIN-SHLDER 10/19/2011 MADL ARN, NINOSKA L D V58.83 THERAPEUTIC DRUG MONITOR 01/11/2012 MADL ARN, NINOSKA L D 490 BRONCHITIS NOS 01/11/2012 MADL ARN, NINOSKA L D 786.2 COUGH 03/13/2012 MADL ARN, NINOSKA L D 272.4 HYPERLIPIDEMIA NEC/NOS 03/13/2012 MADL ARN, NINOSKA L D 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 05/15/2012 MADL ARN, NINOSKA L D 473.9 CHRONIC SINUSITIS NOS 05/15/2012 MADL ARN, NINOSKA L D 780.60 FEVER NOS 05/15/2012 MADL ARN, NINOSKA L D 780.79 OTHER MALAISE & FATIGUE 05/15/2012 MADL ARN, NINOSKA L D 787.91 DIARRHEA 06/13/2012 MADL ARN, NINOSKA L D 272.4 HYPERLIPIDEMIA NEC/NOS 06/13/2012 DEMIAN COMERA L D 477.9 ALLERGIC RHINITIS NOS 06/13/2012 DEMIAN COMERA L D 607.84 IMPOTENCE, ORGANIC ORIGN 10/18/2012 ANDREW PROCTORICA L D 257.2 TESTICULAR HYPOFUNC NEC 10/18/2012 ANDREW PROCTORICA L D 272.4 HYPERLIPIDEMIA NEC/NOS 10/18/2012 ANDREW PROCTORICA L D 715.90 OSTEOARTHROS NOS-UNSPEC 10/18/2012 ANDREW PROCTORICA L D V76.44 SCREEN MAL NEOP PROSTATE 05/13/2013 NABIL REYES 780.60 FEVER NOS 05/13/2013 NABIL REYES 786.2 COUGH 05/22/2013 YOUSUF YADAV DO 786.05 SHORTNESS OF BREATH 05/22/2013 YOUSUF YADAV DO 786.2 COUGH 08/15/2013 ANDREW PROCTORICA L D 257.2 TESTICULAR HYPOFUNC NEC 08/15/2013 ANDREW PROCTORICA L D 780.79 OTHER MALAISE & FATIGUE 08/15/2013 ANDREW PROCTORICA L D V76.44 SCREEN MAL NEOP PROSTATE 01/19/2014 ANDREW PROCTORICA L D 257.2 TESTICULAR HYPOFUNC NEC 01/19/2014 ANDREW PROCTORICA L D 272.4 HYPERLIPIDEMIA NEC/NOS 01/19/2014 ANDREW PROCTORICA L D 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 01/19/2014 ANDREW PROCTORICA L D V76.44 SCREEN MAL NEOP PROSTATE 05/27/2014 D 257.2 TESTICULAR HYPOFUNC NEC 05/27/2014 D V58.69 FDC MEDICATION USE 05/27/2014 D V76.44 SCREEN MAL NEOP PROSTATE 06/08/2014 D 379.90 EYE DISORDER NOS 06/08/2014 D 379.91 PAIN IN OR AROUND EYE 09/22/2014 ANDREW PROCTORICA L D 257.2 TESTICULAR HYPOFUNC NEC 09/22/2014 ANDREW PROCTORICA L D 401.9 HYPERTENSION NOS 09/22/2014 ANDREW PROCTORICA L D V58.69 FDC MEDICATION USE 09/22/2014 HAYLEY PROCTOR V76.44 SCREEN MAL NEOP PROSTATE 04/21/2015 HAYLEY PROCTOR E29.1 Testicular hypofunction 04/21/2015 HAYLEY PROCTOR K21.9 Gastro-esophageal reflux disease without esophagitis 04/21/2015 HAYLEY PROCTOR L Joyce M54.9 Dorsalgia, unspecified 04/21/2015 HAYLEY PROCTOR Z12.5 Encounter for screening for malignant neoplasm of prostate 04/21/2015 HAYLEY PROCTOR Z79.899 Other terminal computer operator (current) drug therapy 03/28/2016 HAYLEY PROCTOR L Joyce E78.2 Mixed hyperlipidemia 03/28/2016 HAYLEY PROCTOR I10 Essential (primary) hypertension 03/28/2016 HAYLEY PROCTOR L Joyce N40.0 Benign prostatic hyperplasia without lower urinry tract symp 08/29/2016 HAYLEY PROCTOR R00.2 Palpitations 10/24/2016 HAYLEY PROCTOR L Joyce E78.5 Hyperlipidemia, unspecified 10/24/2016 ANDREW PROCTORICA L D N40.0 Benign prostatic hyperplasia without lower urinry tract symp 10/24/2016 HAYLEY PROCTOR Q85.00 Neurofibromatosis, unspecified 11/24/2016 HAYLEY PROCTOR L Joyce D72.829 Elevated white blood cell count, unspecified 12/14/2016 SDYNIE PRIDE A E78.5 Hyperlipidemia, unspecified 12/14/2016 SYDNIE PRIDE M54.5 Low back pain 12/14/2016 SYDNIE PRIDE D Q85.00 Neurofibromatosis, unspecified 12/14/2016 SYDNIE PRIDE A Z00.00 Encntr for general adult medical exam w/o abnormal findings 12/20/2016 Tony BRAR, Holland Salinas F52.0 Erectile Dysfunction 03/23/2017 HAYLEY PROCTOR L Joyce E78.5 Hyperlipidemia, unspecified 03/23/2017 HAYLEY PROCTOR L D N40.0 Benign prostatic hyperplasia without lower urinry tract symp 03/23/2017 JESSICA MENDEZHAYLEY Joyce R53.83 Other fatigue 05/23/2017 Holland Jimenez MD K40.90 Inguinal hernia, right 05/23/2017 Holland Jimenez MD Q85.00 Neurofibromatosis Procedures Code Description [place] [address] ROUTINE VENIPUNCTURE [facility], NINOSKA L 03/30/2011 81835 COMPREHEN METABOLIC PANEL [facility] ARN, NINOSKA L 03/30/2011 86199 ROUTINE VENIPUNCTURE MADL ARN, NINOSKA L 08/23/2011 13517 COMPREHEN METABOLIC PANEL [facility] ARN, NINOSKA L 08/23/2011 42310 LIPID PANEL [facility] ARN, NINOSKA L 08/23/2011 35144 ASSAY OF CK (CPK) [facility], NINOSKA L 08/23/2011 G0103 PSA SCREENING [facility], NINOSKA L 08/23/2011 52757 ROUTINE VENIPUNCTURE [facility] ARN, NINOSKA L 10/19/2011 37627 X-RAY EXAM OF SHOULDER [facility], NINOSKA L 10/19/2011 90292 COMPREHEN METABOLIC PANEL [facility] ARN, NINOSKA L 10/19/2011 83404 [facility] CK [facility]CPK) [facility] 10/19/2011 38579 ROUTINE VENIPUNCTURE [facility], NINOSKA L 01/11/2012 98974 CHEST X-RAY [facility], NINOSKA L 01/11/2012 95712 COMPLETE CBC W/AUTO DIFF WBC [facility] AR[facility], NINOSKA L 01/11/2012 68367 MYCOPLASMA ANTIBODY [facility], NINOSKA L 01/11/2012 76438 ROUTINE VENIPUNCTURE [facility] ARN, NINOSKA L 03/13/2012 68913 COMPREHEN METABOLIC PANEL [facility] ARN, NINOSKA L 03/13/2012 90770 ASSAY OF CK (CPK) [facility] 03/13/2012 78492 ASSAY OF BLOOD LIPOPROTEIN [facility], NINOSKA L 03/13/2012 09585 INFLUENZA ASSAY W/OPTIC [facility], NINOSKA L 05/15/2012 84672 ROUTINE VENIPUNCTURE [facility] ARN, NINOSKA L 06/13/2012 11872 COMPREHEN METABOLIC PANEL MADL ARNDEMIANA L 06/13/2012 11791 LIPID PANEL MADL ARNDEMIANA L 06/13/2012 53231 ASSAY OF BLOOD LIPOPROTEIN MADL ARNDEMIANA L 06/13/2012 16836 ASSAY OF TESTOSTERONE MADL DEMIAN ZIEGLERA L 06/13/2012 16951 ROUTINE VENIPUNCTURE [facility] MIXERANDREWHAYLEY L 10/18/2012 23603 COMPREHEN METABOLIC PANEL [facility] MIXERANDREWHAYLEY L 10/18/2012 43014 LIPID PANEL [facility], HAYLEY L 10/18/2012 27481 ASSAY OF TOTAL TESTOSTERONE JESSICA [facility]DER MIXERANDREWHAYLEY L 10/18/2012 36883 COMPLETE CBC W/AUTO DIFF WBC JESSICA ZIEGLERPANDREWHAYLEY L 10/18/2012 G0103 PSA SCREENING JESSICA [facility] MIXERANDREWHAYLEY L 10/18/2012 09431 INFLUENZA ASSAY W/OPTIC NABIL REYES 05/13/2013 01358 CHEST X-RAY YOUSUF YADAV DO 05/22/2013 37107 ROUTINE VENIPUNCTURE [facility] MIXERANDREWHAYLEY L 08/15/2013 98900 ASSAY OF TESTOSTERONE JESSICA ZIEGLERPANDREWHAYLEY L 08/15/2013 18419 ASSAY OF TOTAL TESTOSTERONE JESSICA DIAMOND POWDER MIXERANDREWHAYLEY L 08/15/2013 79711 COMPLETE CBC W/AUTO DIFF WBC [facility] MIXERANDREWHAYLEY L 08/15/2013 G0103 PSA SCREENING [facility] [employer], HAYLEY L 08/15/2013 44413 ROUTINE VENIPUNCTURE JESSICA ZIEGLERPANDREWHAYLEY L 01/19/2014 86044 COMPREHEN METABOLIC PANEL [facility] [employer] MIXER, HAYLEY L 01/19/2014 71292 LIPID PANEL [facility] [employer] MIXER, HAYLEY L 01/19/2014 67639 ASSAY OF TOTAL TESTOSTERONE [facility] MIXERANDREWHAYLEY L 01/19/2014 34264 COMPLETE CBC W/AUTO DIFF WBC [facility] MIXERANDREWHAYLEY L 01/19/2014 G0103 PSA SCREENING [employer] [employer] MIXER, HAYLEY L 01/19/2014 13874 ROUTINE VENIPUNCTURE [employer] MIXER, HAYLEY L 05/27/2014 93754 ASSAY OF TOTAL TESTOSTERONE JESSICA DIAMOND POWDER MIXERANDREWHAYLEY L 05/27/2014 G0103 PSA SCREENING [facility] [employer] M[employer], HAYLEY L 05/27/2014 14543 CULTURE, BACTERIA, OTHER [facility] [employer] MIXER, HAYLEY L 06/08/2014 43951 SMEAR, GRAM STAIN JESSICA ZIEGLERPANDREWHAYLEY L 06/08/2014 25728 ROUTINE VENIPUNCTURE [employer] MIXER, HAYLEY L 09/22/2014 94148 COMPREHEN METABOLIC PANEL [facility] [employer] MIXER, HAYLEY L 09/22/2014 39330 ASSAY OF TOTAL TESTOSTERONE JESSICA DIAMOND POWDER MIXERANDREWHAYLEY L 09/22/2014 47319 COMPLETE CBC W/AUTO DIFF WBC JESSICA DIAMOND POWDER MIXERANDREWHAYLEY L 09/22/2014 G0103 PSA SCREENING [facility] [employer] MIXER, HAYLEY L 09/22/2014 83429 ROUTINE VENIPUNCTURE [employer]OW[employer] MIXER, HAYLEY L 04/21/2015 15092 COMPREHEN METABOLIC PANEL JESSICA DIAMOND POWDER MIXERANDREWHAYLEY L 04/21/2015 63194 LIPID PANEL JESSICA DIAMOND POWDER MIXER, HAYLEY L 04/21/2015 75323 ASSAY OF PSA TOTAL JESSICA ZIEGLERPANDREWHAYLEY L 04/21/2015 19931 ASSAY OF TOTAL TESTOSTERONE JESSICA ZIEGLERPANDREWHAYLEY L 04/21/2015 79192 ASSAY THYROID STIM HORMONE JESSICA DIAMOND POWDER MIXERANDREWHAYLEY L 04/21/2015 52022 COMPLETE CBC W/AUTO DIFF WBC [facility] MIXERANDREWHAYLEY L 04/21/2015 G0103 PSA SCREENING [facility] MIXERANDREWHAYLEY L 04/21/2015 37653 ROUTINE VENIPUNCTURE [facility] [employer] MIXERANDREWHAYLEY L 07/26/2015 77144 COMPREHEN METABOLIC PANEL JESSICA DIAMOND POWDER MIXER, HAYLEY L 07/26/2015 36596 LIPID PANEL JESSICA DIAMOND POWDER MIXERANDREWHAYLEY L 07/26/2015 49343 COMPLETE CBC W/AUTO DIFF WBC JESSICA DIAMOND POWDER MIXERANDREWHAYLEY L 07/26/2015 G0103 PSA SCREENING [facility] [employer] MIXER, HAYLEY L 07/26/2015 16267 ROUTINE VENIPUNCTURE [employer]OW[employer] MIXER, HAYLEY L 03/28/2016 51550 COMPREHEN METABOLIC PANEL [facility] [employer] MIXER, HAYLEY L 03/28/2016 94820 LIPID PANEL [facility] [employer]OW[employer] MIXER, HAYLEY L 03/28/2016 43499 ASSAY OF PSA TOTAL JESSICA DIAMOND POWDER MIXER, HAYLEY L 03/28/2016 58723 COMPLETE CBC W/AUTO DIFF WBC JESSICA DIAMOND POWDER MIXERANDREWHAYLEY L 03/28/2016 35712 TTE W/DOPPLER COMPLETE JESSICA DIAMOND POWDER MIXER, HAYLEY L 08/29/2016 34525 ROUTINE VENIPUNCTURE [facility] [employer] MIXER, HAYLEY L 10/24/2016 54747 COMPREHEN METABOLIC PANEL HAYLEY PROCTOR L 10/24/2016 59821 ASSAY OF PSA TOTAL HAYLEY PROCTOR L 10/24/2016 71302 ASSAY OF TOTAL TESTOSTERONE HAYLEY PROCTOR L 10/24/2016 71947 ASSAY THYROID STIM HORMONE HAYLEY PROCTOR L 10/24/2016 62365 COMPLETE CBC W/AUTO DIFF WBC HAYLEY PROCTOR L 10/24/2016 54473 ROUTINE VENIPUNCTURE HAYLEY PROCTOR L 11/24/2016 65301 COMPLETE CBC W/AUTO DIFF WBC HAYLEY PROCTOR L 11/24/2016 14090 ELECTROCARDIOGRAM TRACING SYDNIE PRIDE Joyce 12/14/2016 37321 ROUTINE VENIPUNCTURE HAYLEY PROCTOR L 03/23/2017 75440 COMPREHEN METABOLIC PANEL HAYLEY PROCTOR L 03/23/2017 57605 LIPID PANEL HAYLEY PROCTOR L 03/23/2017 04893 ASSAY OF PSA TOTAL HAYLEY PROCTOR L 03/23/2017 36499 ASSAY OF TOTAL TESTOSTERONE HAYLEY PROCTOR L 03/23/2017 06461 ASSAY THYROID STIM HORMONE HAYLEY PROCTOR L 03/23/2017 26595 COMPLETE CBC W/AUTO DIFF WBC HAYLEY PROCTOR L 03/23/2017 Results Test Result Range - 06/13/12 13:02 Osmo Calculated 278 MOSM 261-280 Sodium 143 MMOLL 137-145 T. Protein 8.4 G/DL 6.3-8.2 Potassium 4.6 MMOLL 3.6-5.0 T Bili 0.8 MG/DL 0.2-1.3 Calcium 9.9 MG/DL 8.4-10.2 BUN 20 MG/DL 7-21 Chloride 104 MMOLL 98-107 AST 60 U/L 15-46 ALT 35 U/L 7-56 Albumin 4.5 G/DL 3.5-5.0 A/G Ratio 1.2 RATIO 1.2-2.2 Bun/Creat 28.1 RATIO 7-25 Alk Phos 91 U/L 38-126 CO2 25 MMOLL 22-30 Glucose 87 MG/DL 65-110 Globulin 3.9 2.4-3.5 Creatinine 0.7 MG/DL 0.7-1.5 Lipid Profile - 06/13/12 13:02 HDL 54.6 MG/DL 35-100 VLDL 12 0-21 Triglyceride 61 MG/DL 35-160 Cholesterol 225 MG/DL 130-200 LDL Calculated 158 0-130 LDL Direct - 06/13/12 13:02 LDL Direct 149 mg/dL <130 Testosterone Free - 06/13/12 13:02 Testosterone Free 52.5 pg/mL 46.0-224.0 COMPLETE BLOOD COUNT - 10/18/12 15:40 Platelet 177 10^3u 142-424 MPV 11.7 FL 9.4-12.4 Hand # 0.69 10^3u 0.0-1.0 RBC 5.31 10^6u 4.04-6.13 Hand % 12.4 % 0-12 RDW 14.1 % 11.6-14.8 Neut # 3.58 10^3u 2.0-6.9 Neut % 64.1 % 37-80 WBC 5.58 10^3u 4.60-10.20 MCV 92.5 FL 80.0-97.0 Baso # 0.01 10^3u 0.0-0.1 Baso % 0.2 % 0-2 Eos # 0.27 10^3u 0-0.7 Eos % 4.8 % 0-7 Lymph % 18.5 % 10-50 MCHC 34.0 G/DL 31.8-35.4 MCH 31.5 PG 27.0-31.2 Lymph # 1.03 10^3u 0.6-3.4 HGB 16.7 G/DL 12.2-18.1 HCT 49.1 % 37.7-53.7 CMP - 10/18/12 15:40 Osmo Calculated 276 MOSM 261-280 Sodium 143 MMOLL 137-145 T. Protein 7.7 G/DL 6.3-8.2 Potassium 4.8 MMOLL 3.6-5.0 T Bili 0.7 MG/DL 0.2-1.3 Calcium 9.7 MG/DL 8.4-10.2 BUN 11 MG/DL 7-21 Chloride 104 MMOLL 98-107 AST 22 U/L 15-46 ALT 35 U/L 7-56 Albumin 4.3 G/DL 3.5-5.0 A/G Ratio 1.3 RATIO 1.2-2.2 Bun/Creat 16.4 RATIO 7-25 Alk Phos 68 U/L 38-126 CO2 28 MMOLL 22-30 Glucose 102 MG/DL 65-110 Globulin 3.4 2.4-3.5 Creatinine 0.6 MG/DL 0.7-1.5 Lipid Profile - 10/18/12 15:40 HDL 57.3 MG/DL 35-100 VLDL 10 0-21 Triglyceride 50 MG/DL 35-160 Cholesterol 202 MG/DL 130-200 LDL Calculated 135 0-130 Testosterone - 10/18/12 15:40 Testosterone 777.31 NG/DL 250-1100 PSA Screen - 10/18/12 15:40 PSA Screen 0.6 NG/ML <=4.0 Influenza A B - 05/13/13 16:01 Influenza A POS Negative Influenza B NEG Negative COMPLETE BLOOD COUNT - 08/15/13 13:03 Platelet 187 10^3u 142-424 MPV 12.1 FL 9.4-12.4 Hand # 0.88 10^3u 0.0-1.0 RBC 5.42 10^6u 4.04-6.13 Hand % 10.5 % 0-12 RDW 14.3 % 11.6-14.8 Neut # 5.88 10^3u 2.0-6.9 Neut % 69.9 % 37-80 WBC 8.42 10^3u 4.60-10.20 MCV 91.5 FL 80.0-97.0 Baso # 0.02 10^3u 0.0-0.1 Baso % 0.2 % 0-2 Eos # 0.23 10^3u 0-0.7 Eos % 2.7 % 0-7 Lymph % 16.7 % 10-50 MCHC 34.1 G/DL 31.8-35.4 MCH 31.2 PG 27.0-31.2 Lymph # 1.41 10^3u 0.6-3.4 HGB 16.9 G/DL 12.2-18.1 HCT 49.6 % 37.7-53.7 PSA Screen - 08/15/13 13:03 PSA Screen 0.5 NG/ML <=4.0 Testosterone - 08/15/13 13:03 Testosterone 816.63 NG/DL 250-1100 Testosterone Free - 08/15/13 13:03 Testosterone Free 34.6 pg/mL 46.0-224.0 COMPLETE BLOOD COUNT - 01/19/14 10:03 Platelet 187 10^3u 142-424 MPV 10.5 FL 9.4-12.4 Hand # 1.02 10^3u 0.0-1.0 RBC 5.65 10^6u 4.04-6.13 Hand % 12.9 % 0-12 RDW 15.9 % 11.6-14.8 Neut # 5.05 10^3u 2.0-6.9 Neut % 63.6 % 37-80 WBC 7.93 10^3u 4.60-10.20 MCV 95.2 FL 80.0-97.0 Baso # 0.02 10^3u 0.0-0.1 Baso % 0.3 % 0-2 Eos # 0.19 10^3u 0-0.7 Eos % 2.4 % 0-7 Lymph % 20.8 % 10-50 MCHC 33.5 G/DL 31.8-35.4 MCH 31.9 PG 27.0-31.2 Lymph # 1.65 10^3u 0.6-3.4 HGB 18.0 G/DL 12.2-18.1 HCT 53.8 % 37.7-53.7 CMP - 01/19/14 10:03 Osmo Calculated 271 MOSM 261-280 Sodium 140 MMOLL 137-145 T. Protein 7.9 G/DL 6.3-8.2 Potassium 4.7 MMOLL 3.6-5.0 T Bili 0.9 MG/DL 0.2-1.3 Calcium 9.1 MG/DL 8.4-10.2 BUN 18 MG/DL 7-21 Chloride 107 MMOLL 98-107 AST 16 U/L 15-46 ALT 24 U/L 7-56 Albumin 4.2 G/DL 3.5-5.0 A/G Ratio 1.1 RATIO 1.2-2.2 Bun/Creat 24.7 RATIO 7-25 Alk Phos 74 U/L 38-126 CO2 26 MMOLL 22-30 Glucose 86 MG/DL 65-110 Globulin 3.7 2.4-3.5 Creatinine 0.7 MG/DL 0.7-1.5 Lipid Profile - 10/27/14 10:03 HDL 47.2 MG/DL 35-100 VLDL 11 0-21 Triglyceride 56 MG/DL 35-160 Cholesterol 208 MG/DL 130-200 LDL Calculated 150 0-130 PSA Screen - 01/19/14 10:03 PSA Screen 2.6 NG/ML <=4.0 Testosterone - 01/19/14 10:03 Testosterone 1435.14 NG/DL 250-1100 PSA Screen - 05/27/14 12:57 PSA Screen 1.6 NG/ML <=4.0 Testosterone - 05/27/14 13:37 Testosterone 947.38 NG/DL 250-1100 COMPLETE BLOOD COUNT - 09/22/14 10:08 Platelet 180 10^3u 142-424 MPV 11.7 FL 9.4-12.4 Hand # 0.71 10^3u 0.0-1.0 RBC 5.39 10^6u 4.04-6.13 Hand % 10.2 % 0-12 RDW 13.6 % 11.6-14.8 Neut # 4.67 10^3u 2.0-6.9 Neut % 66.9 % 37-80 WBC 6.98 10^3u 4.60-10.20 MCV 92.6 FL 80.0-97.0 Baso # 0.01 10^3u 0.0-0.1 Baso % 0.1 % 0-2 Eos # 0.37 10^3u 0-0.7 Eos % 5.3 % 0-7 Lymph % 17.5 % 10-50 MCHC 32.9 G/DL 31.8-35.4 MCH 30.4 PG 27.0-31.2 Lymph # 1.22 10^3u 0.6-3.4 HGB 16.4 G/DL 12.2-18.1 HCT 49.9 % 37.7-53.7 CMP - 09/22/14 10:09 Osmo Calculated 277 MOSM 261-280 Sodium 142 MMOLL 137-145 T. Protein 7.5 G/DL 6.3-8.2 Potassium 4.0 MMOLL 3.6-5.0 T Bili 0.5 MG/DL 0.2-1.3 Calcium 9.4 MG/DL 8.4-10.2 BUN 16 MG/DL 7-21 Chloride 104 MMOLL 98-107 AST 17 U/L 15-46 ALT 28 U/L 7-56 Albumin 4.2 G/DL 3.5-5.0 A/G Ratio 1.3 RATIO 1.2-2.2 Bun/Creat 21.5 RATIO 7-25 Alk Phos 88 U/L 38-126 CO2 28 MMOLL 22-30 Glucose 110 MG/DL 65-110 Globulin 3.3 2.4-3.5 Creatinine 0.7 MG/DL 0.7-1.5 Testosterone - 09/22/14 10:32 Testosterone 751.53 NG/DL 250-1100 PSA Screen - 09/22/14 11:45 PSA Screen 0.8 NG/ML <=4.0 COMPLETE BLOOD COUNT - 04/21/15 11:39 Platelet 197 10^3u 142-424 MPV 11.4 FL 9.4-12.4 Hand # 1.01 10^3u 0.0-1.0 RBC 5.26 10^6u 4.04-6.13 Hand % 9.6 % 0-12 RDW 14.1 % 11.6-14.8 Neut # 7.63 10^3u 2.0-6.9 Neut % 72.5 % 37-80 WBC 10.52 10^3u 4.60-10.20 MCV 93.9 FL 80.0-97.0 Baso # 0.02 10^3u 0.0-0.1 Baso % 0.2 % 0-2 Eos # 0.28 10^3u 0-0.7 Eos % 2.7 % 0-7 Lymph % 15.0 % 10-50 MCHC 32.4 G/DL 31.8-35.4 MCH 30.4 PG 27.0-31.2 Lymph # 1.58 10^3u 0.6-3.4 HGB 16.0 G/DL 12.2-18.1 HCT 49.4 % 37.7-53.7 CMP - 04/21/15 12:33 Osmo Calculated 266 MOSM 261-280 Sodium 138 MMOLL 136-145 T. Protein 7.6 G/DL 6.4-8.3 Potassium 4.8 MMOLL 3.5-5.1 T Bili 0.6 MG/DL 0.2-1.2 Calcium 9.8 MG/DL 8.4-10.2 BUN 12 MG/DL 7-26 Chloride 104 MMOLL 98-107 AST 13 U/L 5-34 ALT 10 U/L 0-55 Albumin 3.9 G/DL 3.5-5.0 A/G Ratio 1.1 RATIO 1.2-2.2 Bun/Creat 15 RATIO 7-25 Alk Phos 96 U/L 40-150 CO2 27 MMOLL 22-29 Glucose 90 MG/DL 70-99 Globulin 3.7 G/DL 2.4-3.5 Creatinine 0.8 MG/DL 0.6-1.3 Lipid Profile - 04/21/15 12:33 HDL 52 MG/DL 40-60 VLDL 12 MG/DL 0-21 Triglyceride 58 MG/DL 0-149 Cholesterol 213 MG/DL 0-199 LDL Calculated 149 MG/DL 0-130 TSH - 04/21/15 12:33 TSH 1.23 UIUML 0.35-4.94 PSA - 04/21/15 12:33 PSA 4.2 NG/ML <=4.0 Testosterone - 04/21/15 13:21 Testosterone 1187.67 NG/DL 250-1100 COMPLETE BLOOD COUNT - 07/26/15 10:43 Platelet 227 10^3u 142-424 MPV 10.8 FL 9.4-12.4 Hand # 0.74 10^3u 0.0-1.0 RBC 5.11 10^6u 4.04-6.13 Hand % 10.9 % 0-12 RDW 14.0 % 11.6-14.8 Neut # 4.47 10^3u 2.0-6.9 Neut % 65.7 % 37-80 WBC 6.80 10^3u 4.60-10.20 MCV 94.9 FL 80.0-97.0 Baso # 0.02 10^3u 0.0-0.1 Baso % 0.3 % 0-2 Eos # 0.13 10^3u 0-0.7 Eos % 1.9 % 0-7 Lymph % 21.2 % 10-50 MCHC 32.4 G/DL 31.8-35.4 MCH 30.7 PG 27.0-31.2 Lymph # 1.44 10^3u 0.6-3.4 HGB 15.7 G/DL 12.2-18.1 HCT 48.5 % 37.7-53.7 CMP - 07/26/15 10:54 Osmo Calculated 269 MOSM 261-280 Sodium 139 MMOLL 136-145 T. Protein 7.2 G/DL 6.4-8.3 Potassium 4.2 MMOLL 3.5-5.1 T Bili 0.4 MG/DL 0.2-1.2 Calcium 9.2 MG/DL 8.4-10.2 BUN 13 MG/DL 7-26 Chloride 105 MMOLL 98-107 AST 14 U/L 5-34 ALT 11 U/L 0-55 Albumin 3.8 G/DL 3.5-5.0 A/G Ratio 1.1 RATIO 1.2-2.2 Bun/Creat 19 RATIO 7-25 Alk Phos 83 U/L 40-150 CO2 27 MMOLL 22-29 Glucose 96 MG/DL 70-99 Globulin 3.4 G/DL 2.4-3.5 Creatinine 0.7 MG/DL 0.6-1.3 Lipid Profile - 07/26/15 10:55 HDL 48 MG/DL 40-60 VLDL 7 MG/DL 0-21 Triglyceride 37 MG/DL 0-149 Cholesterol 153 MG/DL 0-199 LDL Calculated 98 MG/DL 0-130 PSA Screen - 07/26/15 10:55 PSA Screen 0.8 NG/ML <=4.0 Encounters ACCT No. Visit Date/Time Discharge Status Pt. Type Provider Facility Loc./Unit Complaint [id number] 03/23/2017 09:44:00 03/23/2017 09:44:00 [id number] 12/14/2016 14:21:00 12/14/2016 14:21:00 DIS Outpatient SYDNIE PRIDE [facility] LAB [id number] 11/24/2016 10:04:00 11/24/2016 10:04:00 DIS Outpatient JESSICA MENDEZ [facility] LAB [id number] 10/24/2016 09:55:00 10/24/2016 09:55:00 DIS Outpatient JESSICA MENDEZ [facility] LAB [id number] 08/29/2016 09:55:00 08/29/2016 09:55:00 [id number] 03/28/2016 10:37:00 03/28/2016 10:37:00 [facility] [id number] 07/26/2015 09:52:00 07/26/2015 09:52:00 [id number] 04/21/2015 11:19:00 04/21/2015 11:19:00 [facility] [id number] 09/22/2014 09:43:00 09/22/2014 09:43:00 [id number] 01/19/2014 09:55:00 01/19/2014 09:55:00 [id number] 08/15/2013 12:53:00 08/15/2013 12:53:00 [facility] [id number] 05/22/2013 12:25:00 05/22/2013 12:25:00 [id number] 05/13/2013 15:54:00 05/13/2013 15:54:00 DIS Outpatient MIRIAN SHORE [facility] OTHER [id number] 10/18/2012 15:29:00 10/18/2012 15:29:00 [facility] [id number] 06/13/2012 12:53:00 06/13/2012 12:53:00 DIS Outpatient [facility]AD[facility] OTHER [id number] 05/15/2012 13:06:00 05/15/2012 13:06:00 [facility] [id number] 03/13/2012 14:59:00 03/13/2012 23:59:59 CLS Outpatient MADL [facility] [id number] 01/11/2012 15:15:00 01/11/2012 23:59:59 CLS Outpatient MADL ARN, NINOSKA L [id number] 10/19/2011 15:11:00 10/19/2011 23:59:59 CLS Outpatient NINOSKA COMER [id number] 08/23/2011 12:07:00 08/23/2011 23:59:59 CLS Outpatient NINOSKA COMER [id number] 03/30/2011 13:35:00 03/30/2011 23:59:59 CLS Outpatient NINOSKA COMER [id number] 06/08/2014 16:22:00 Document Registration [id number] 05/27/2014 12:57:00 Document Registration [id number] 05/23/2017 14:21:02 ACT Unknown Hloland Jimenez MD
[2017-06-07] MEDS ORDERED: ceFAZolin INJECTION 1,000 MG in NS (IVPB) 100 ML IV ONE (09:15)
[2017-06-07 09:25] VITALS: BP 104/69
[2017-06-07] MEDS: LACTATED RINGERS 1,000 ML IV PRN ×2 (09:27→11:30)
[2017-06-07] MEDS ORDERED: NS (IVPB) 100 ML ONE (09:28)
[2017-06-07] MEDS ORDERED: ceFAZolin 1,000 MG (ANCEF) VIAL ONE (09:28)
--- NOTE | 2017-06-07 10:42 | Progress Note-Pre Operative ---
Pre-Operative Progress Note H&P Reviewed The H&P was reviewed, patient examined and no changes noted. Date Seen by Provider: Jun 07, 2017 Time Seen by Provider: 10:42 Date H&P Reviewed: Jun 07, 2017 Time H&P Reviewed: 10:42 Pre-Operative Diagnosis: recurrent right inguinal hernia JUVENTINO THOMASON DO Jun 07, 2017 10:42
[2017-06-07] MEDS ORDERED: BUPIVACAINE 0.5% 30 ML (SENSORCAINE) VIAL ONE (10:54)
[2017-06-07] MEDS ORDERED: LIDOCAINE 1% INJ 20 ML (XYLOCAINE) VIAL ONE (10:54)
[2017-06-07] MEDS ORDERED: fentaNYL INJECTION 100 MCG/2 ML AMP ONE (10:56)
[2017-06-07] MEDS ORDERED: MIDAZOLAM 2 MG/2 ML (VERSED) VIAL ONE (10:56)
[2017-06-07] MEDS ORDERED: LACTATED RINGERS 1,000 ML IV PRN ×2 (10:58)
[2017-06-07] MEDS ORDERED: MIDAZOLAM 2 MG/2 ML (VERSED) VIAL IV ONE (11:00)
[2017-06-07] MEDS ORDERED: proPOfol 200 MG/20 ML (DIPRIVAN) VIAL IV ONE (11:30)
[2017-06-07] MEDS ORDERED: ONDANSETRON 4 MG/2 ML (SDV) Z0FRAN ONE (11:30)
[2017-06-07] MEDS ORDERED: DEXAMETHASONE 10 MG/ML (DECADRON) 1 ML VIAL ONE (11:30)
[2017-06-07] MEDS ORDERED: LIDOCAINE PF 2% 5 ML (XYLOCAINE) VIAL ONE (11:30)
[2017-06-07] MEDS ORDERED: SEVOFLURANE (ULTANE) 15 ML INHAL SOLN ONE ×3 (11:30)
--- NOTE | 2017-06-07 11:56 | Progress Note-Post Operative ---
Post-Operative Progess Note Surgeon (s)/Mill Roll Operator (s) Surgeon JUVENTINO THOMASON DO Mill Roll Operator: Dr. Kern Pre-Operative Diagnosis recurrent right inguinal hernia Post-Operative Diagnosis recurrent right inguianal hernia direct Procedure & Operative Findings Date of Procedure 06/07/17 Procedure Performed/Findings right inguinal hernia repair recurrent incarcerated fat, excision cord lipoma Anesthesia Type general Estimated Blood Loss Estimated blood loss (mL): min Specimens/Packing Specimens Removed cord lipoma JUVENTINO THOMASON DO Jun 07, 2017 11:56
[2017-06-07] MEDS ORDERED: ACHD5005 PO (11:58)
[2017-06-07] MEDS ORDERED: DOCU-143 PO (11:58)
[2017-06-07] MEDS ORDERED: HYDROcodone/APAP 5 MG/325 MG (LORTAB) TAB PO PRN (12:00)
--- NOTE | 2017-06-07 12:01 | Discharge Inst-Simple/Standard ---
Discharge Inst-Standard Discharge Medications New, Converted or Re-Newed RX: RX on Chart Patient Instructions/Follow Up Plan of Care/Instructions/FU: 2-3 weeks Jamila Activity as Tolerated: No Discharge Diet: Regular Diet Other Inst to Patient Follow up Appt: Make appointment for 2-3 week. Instructions: No lifting greater than 10 pounds. No strenuous activity. May shower in 24 hours, no tub bath or soaking. Use incentive spirometer at home as directed. No Smoking Skin/Wound Care: You have special glue over incision it will fall off on its own. Symptoms to Report: Appetite Changes, Extremity Discoloration, Numbness/Tingling, Swelling Increased , Bleeding Excessive, Eyesight Changes, Pain Increased, Urine Color Change, Constipation(Persistent), Fever over 101 degree F, Pain/Pressure in chest, Urinating Difficulty, Cough Up/Vomit Blood, Heart Beat Irreg/Pounding, Pain/ Pressure in jaw, Vaginal Bleeding Increase, Cramps in feet or legs, Lightheadedness, Pain/Pressure in shoulder, Diarrhea(Persistent), Memory Changes Suddenly, Questions/Concerns, Weight gain consecutive days, Dizziness/ Fainting, Nausea/Vomiting, Shortness of Breath, Weight gain over 2 pounds If questions or concerns contact your physician Or seek help at emergency department. JUVENTINO THOMASON DO Jun 07, 2017 12:01
[2017-06-07] MEDS: MEPERIDINE (DEMEROL) INJ 50 MG/ML IVP PRN ×2 (12:30→12:40)
[2017-06-07] MEDS ORDERED: PROMETHAZINE INJ 25 MG/ML (PHENERGAN) AMP IVP PRN (12:45)
[2017-06-07] MEDS ORDERED: morphine INJ 10 MG/ML 1ML (SYR OR VIAL) IVP PRN (12:45)
[2017-06-07] MEDS ORDERED: ONDANSETRON 4 MG/2 ML (SDV) Z0FRAN IVP PRN (12:45)
[2017-06-07] MEDS ORDERED: HYDROmorphone (DILAUDID) 2 MG/ML VIAL IVP PRN (12:45)
[2017-06-07 13:10] VITALS: BP 105/65
[2017-06-07 13:40] VITALS: BP 118/67
[2017-06-07 14:09] VITALS: BP 101/63
[2017-06-07 14:18] VITALS: BP 101/63
--- NOTE | 2017-06-07 14:18 | Anesthesia-General Post-Op ---
General Patient Condition Mental Status/LOC: Same as Preop Cardiovascular: Satisfactory Nausea/Vomiting: Absent Respiratory: Satisfactory Pain: Controlled Complications: Absent Post Op Complications Complications None Follow Up Care/Instructions Patient Instructions None needed. Anesthesia/Patient Condition Patient Condition Patient is doing well, no complaints, stable vital signs, no apparent adverse anesthesia problems. No complications reported per nursing. D/C home per [facility] Criteria: Yes RADHA RIVAS CRNA Jun 07, 2017 14:18
--- NOTE | 2017-06-07 17:53 | OPERATIVE REPORT ---
DATE OF SERVICE: 06/07/2017 PREOPERATIVE DIAGNOSIS: Recurrent right inguinal hernia. POSTOPERATIVE DIAGNOSIS: Recurrent right inguinal hernia, defect cord lipoma. PROCEDURE: Right inguinal hernia repair, recurrent direct hernia with incarcerated fat and excision of cord lipoma. SURGEON: Dr. Marino. ANIMAL BIOLOGIST: Dr. Kern, assisted in retraction, dissection and closure. ESTIMATED BLOOD LOSS: Minimal. COMPLICATIONS: None. INDICATIONS: The patient is a 61-year-old male who had a hernia repair in the 1980s. He has recurrence of a right inguinal hernia. It is increasing in size and caused him pain and discomfort. He understands risks and benefits of procedure and wished to proceed with procedure. Consent was signed in the chart. PROCEDURE: The patient was taken to the operating suite, was prepped and draped in sterile fashion. Surgical pause was performed. Local anesthetic was used to infiltrate into the right inguinal area. Incision was made with 15 blade scalpel. Cautery dissection was taken down to the external oblique. The external oblique was then opened down to the external ring lot of adhesions present under this, which were then bluntly mobilized and then some cautery dissection. The cord was then dissected out bluntly and a [place] drain was placed around it and secured. The cord was inspected. There was a cord lipoma present. Excision of the cord lipoma was performed. There is no hernia sac. No indirect inguinal hernia. The attention was then placed through the direct defect that was present. A fat was herniated through this and was unable to be reduced. A cautery was used to mobilize around the defect and then also blunt dissection, which was then able to be reduced. A 0 Vicryl suture was used to close the defect. A Parietex ProGrip mesh was then secured using 2-0 Vicryl to the Michael's ligament and it was incorporated around the spermatic cord. It was then placed around the cord and placed underneath the external oblique. The external oblique was then closed recreating the external ring after tugging the spermatic cord back underneath it. Prior to closure, the wound was irrigated with copious amounts of irrigation. Hemostasis was achieved. Subcutaneous tissue was then reapproximated using 3-0 Vicryl. Skin was then closed using 4-0 suture. Absorbable suture was used to close the skin in a subcuticular fashion. The area was then washed and dried and SwiftSet was placed over the incision. The patient tolerated procedure well without complications, taken to recovery room in stable condition. Job ID: [id number] DocumentID: [id number] Dictated Date: 06/07/2017 12:05:55 Kiln Charger Date: 06/07/2017 17:52:39 Dictated By: JUVENTINO MARINO DO
== END 2017-06-07 14:18 | disposition home or self-care (01) ==
LOC: SDC 08:50
PROVIDERS: ATTEND Surgery
DX: K40.31 Unilateral inguinal hernia, with obstruction, without gangrene, recurrent (principal); D17.6 Benign lipomatous neoplasm of spermatic cord; J44.9 Chronic obstructive pulmonary disease, unspecified; F17.210 Nicotine dependence, cigarettes, uncomplicated; Z79.899 Other long term (current) drug therapy